=== PATIENT | female | born 1985 | race Caucasian/White ===

== ENCOUNTER 2022-03-15 08:51 | Emergency (ER) | payer BC, OTHER ==
[~2022-03-15] VITALS: Ht 165.1 cm; Wt 57.2 kg
--- NOTE | 2022-03-15 09:00 | NUR ---
POST ICTAL, S/P VERSED. TO ER BED 9.
[2022-03-15 09:17] LABS: BASOPHILS % (AUTO) 0.4 % (0.0-2.0); EOSINOPHILS % (AUTO) 0.9 % (0.0-6.0); HEMATOCRIT 37 % (33-45); HEMOGLOBIN 11.7 g/dL (11.5-14.8); LYMPHOCYTES % (AUTO) 32.8 % (20.0-44.0); MEAN CORPUSCULAR HGB CONC 32 g/dl (31.0-36.0); MEAN CORPUSCULAR VOLUME 101 fL (82-100); MONOCYTES # (AUTO) 0.5 K/uL (0.1-1.30); NEUTROPHILS # (AUTO) 3.5 K/uL (1.8-8.9); NEUTROPHILS % (AUTO) 57.9 % (43.0-81.0); PLATELET COUNT (AUTO) 185 K/uL (150-450); RED BLOOD CELL COUNT(AUTO) 3.66 MIL/uL (4.0-5.2); WHITE BLOOD COUNT (AUTO) 6.1 K/uL (4.3-11.0)
--- NOTE | 2022-03-15 09:20 | NUR ---
LFA #20 ACCESS REGISTRAR, BLOOD DRAWN AND COLLECTED BY PHELB AT BEDSIDE
--- NOTE | 2022-03-15 09:25 | NUR ---
PT TAKEN TO RADIOLOGY FOR CT
[2022-03-15] MEDS ORDERED: LEVETIRACETAM (500MG) 1,000 MG in IV NS 0.9% 100 ML IV SCH (09:30)
--- NOTE | 2022-03-15 09:34 | NUR ---
PT RETURNED FROM RADIOLOGY
[2022-03-15 09:35] LABS: ALBUMIN 3.4 g/dL (3.4-5.0); BILIRUBIN,DIRECT 1.1 mg/dL (0.0-0.2); BILIRUBIN,TOTAL 1.7 mg/dL (0.2-1.0); CALCIUM, SERUM 9.4 mg/dL (8.5-10.1); CREATININE 0.7 mg/dL (0.6-1.3); POTASSIUM 3.8 mmol/L (3.5-5.1); TOTAL PROTEIN, SERUM 9.2 g/dL (6.4-8.2)
--- NOTE | 2022-03-15 10:23 | NUR ---
PT UNABLE TO PROVIDE URINE AT THIS TIME AND REFUSED CATHETER. INFORMED FAMILY TO LET NURSE KNOW WHEN PT IS ABLE TO PROVIDE URINE, VERBALIZED UNDERSTANDING.
--- NOTE | 2022-03-15 10:37 | NUR ---
ACCUCHECK BS 132MG/DL
--- NOTE | 2022-03-15 11:03 | NUR ---
DR WONG SPEAKING W/ PT/FAMILY AT BEDSIDE
[2022-03-15] MEDS ORDERED: ACETAMINOPHEN ES 500 MG TABLET PO ONE (11:30)
[2022-03-15] MEDS ORDERED: ACETAMINOPHEN ES 500 MG TABLET ONE (11:33)
--- NOTE | 2022-03-15 11:50 | NUR ---
TYLENOL PO GIVEN INDICATED, HAYLEY WELL
--- NOTE | 2022-03-15 12:04 | NUR ---
DR WONG AWARE THAT PT UNABLE TO PROVIDE URINE AT THIS TIME AND PT/FAMILY REFUSED CATH
[2022-03-15] MEDS ORDERED: LEVE1000 PO (12:26)
[2022-03-15] MEDS ORDERED: CHLO25CA22 PO (12:26)
--- NOTE | 2022-03-15 12:40 | NUR ---
IV removed. Catheter intact and site benign. Pressure and 4x4 applied to site. No bleeding noted.
--- NOTE | 2022-03-15 12:44 | NUR ---
Patient discharged to home in stable condition. Written and verbal after care instructions given. Patient verbalizes understanding of instruction.
[2022-03-15 12:45] VITALS: BP 130/68
== END 2022-03-15 12:46 | disposition home or self-care (01) ==
LOC: ER 08:53
DX: G40.89 Other seizures (principal); F10.239 Alcohol dependence with withdrawal, unspecified; F10.229 Alcohol dependence with intoxication, unspecified; R73.9 Hyperglycemia, unspecified; K74.60 Unspecified cirrhosis of liver; Z88.8 Allergy status to other drugs, medicaments and biological substances; Y90.1 Blood alcohol level of 20-39 mg/100 ml
CPT/HCPCS: 99285; 96365; 51701; 70450; 82140; 85025; 80048; 80076; 36415; 80164; 82962; 80320; J7030; J1953; G0480

== ENCOUNTER 2022-05-21 05:45 | Emergency (ER) | payer BC, OTHER ==
[~2022-05-21] VITALS: Ht 170.2 cm; Wt 56.7 kg
[~2022-05-21 05:45] MED LIST: CHLO25CA22 PO; LEVE1000 PO
[2022-05-21] MEDS ORDERED: LORAZEPAM INJ 2 MG/ML VIAL ONE (05:51)
--- NOTE | 2022-05-21 05:56 | NUR ---
0551 - PT WAS BEING TRANSFER FROM [facility] TO BED. PT STARTED HAVING A SEIZURE. TONIC CLONIC LASTED 2 MIN. VERBAL ORDER OS ATIVAN 2MG IM GIVEN.
--- NOTE | 2022-05-21 06:08 | NUR ---
FLODY FROM HOME TO ER BED 4. AAOX4. NOT IN RESP DISTRESS. BROUGHT IN FOR SEIZURE WHICH WAS DESCRIBED TONIC CLONIC IN NATURE LASTING 5 MIN PER REPORT. PT HAVE HISTORY AND ON DEPAKOTE. PT WAS REPORTED TO BE A KNOWN DRINKER. PT STATES THAT LAST DRINK WAS YESTERDAY. PT NOTED WITH DISTENDED ABDOMEN. MD WAS AT THE BEDSIDE. ORDERS RECEIVED.
[2022-05-21] MEDS ORDERED: LORAZEPAM INJ 2 MG/ML VIAL IM ONE (06:30)
[2022-05-21 06:31] LABS: BASOPHILS % (AUTO) 0.8 % (0.0-2.0); EOSINOPHILS % (AUTO) 0.2 % (0.0-6.0); HEMATOCRIT 33 % (33-45); HEMOGLOBIN 11.1 g/dL (11.5-14.8); LYMPHOCYTES # (AUTO) 1.1 K/uL (0.8-4.8); LYMPHOCYTES % (AUTO) 26.8 % (20.0-44.0); MEAN CORPUSCULAR HGB CONC 33 g/dl (31.0-36.0); MEAN CORPUSCULAR VOLUME 107 fL (82-100); MONOCYTES # (AUTO) 0.7 K/uL (0.1-1.30); MONOCYTES % (AUTO) 16.5 % (2.0-12.0); NEUTROPHILS # (AUTO) 2.4 K/uL (1.8-8.9); NEUTROPHILS % (AUTO) 55.7 % (43.0-81.0); PLATELET COUNT (AUTO) 121 K/uL (150-450); RED BLOOD CELL COUNT(AUTO) 3.13 MIL/uL (4.0-5.2); WHITE BLOOD COUNT (AUTO) 4.3 K/uL (4.3-11.0)
[2022-05-21 06:39] LABS: ALANINE AMINOTRANSFERASE 29 U/L (12-78); ALBUMIN 2.8 g/dL (3.4-5.0); ALCOHOL, BLOOD < 3 mg/dL (0-0); ALKALINE PHOSPHATASE 400 U/L (46-116); ASPARTATE AMINOTRANSFERASE 154 U/L (15-37); BILIRUBIN,DIRECT 2.1 mg/dL (0.0-0.2); BILIRUBIN,TOTAL 3.1 mg/dL (0.2-1.0); CARBON DIOXIDE 24 mmol/L (21-32); CHLORIDE 96 mmol/L (98-107); CREATININE 0.6 mg/dL (0.6-1.3); GLUCOSE 169 mg/dL (74-106); POTASSIUM 3.8 mmol/L (3.5-5.1); SODIUM SERUM 133 mmol/L (136-145); TOTAL PROTEIN, SERUM 8.6 g/dL (6.4-8.2); UREA NITROGEN, BLOOD 4 mg/dL (7-18)
[2022-05-21] MEDS ORDERED: IV NS 0.9% 1,000 ML BAG IV ONE (07:00)
--- NOTE | 2022-05-21 07:15 | NUR ---
Pt care continue as report is given to the AM receiving nurse.
--- NOTE | 2022-05-21 07:23 | NUR ---
B/P = 132 /86 , PULSE - 121, RR = 19, 97 % ROOM AIR, FRIEND FOR SUPPORT AT BED SIDE AT THIS TIME. DIM LIGHTS & BROUGHT WARM BLANKET FOR COMFORT
[2022-05-21 07:29] LABS: LYMPHOCYTES % (MANUAL) 28 % (16-48); MONOCYTES % (MANUAL) 14 % (0-11.0); NEUTROPHILS % (MANUAL) 58 (42-76)
[2022-05-21] MEDS ORDERED: LEVETIRACETAM (500MG) 500 MG/5 ML VIAL IV ONE (07:42)
[2022-05-21] MEDS ORDERED: THIAMINE HCL 100 MG TABLET PO ONE (08:00)
[2022-05-21] MEDS ORDERED: FOLIC ACID 1 MG TABLET PO ONE (08:00)
[2022-05-21] MEDS: LEVETIRACETAM (500MG) 1,000 MG in IV NS 0.9% 100 ML IV SCH ×6 (08:06→10:51)
[2022-05-21] MEDS ORDERED: THIAMINE HCL 100 MG TABLET ONE (08:08)
[2022-05-21] MEDS ORDERED: LORAZEPAM 1 MG TABLET ONE (08:17)
[2022-05-21] MEDS ORDERED: LORAZEPAM 1 MG TABLET PO ONE (08:30)
--- NOTE | 2022-05-21 08:39 | NUR ---
KEPPRA ORDER 500MG/ 5 ML IV WAS GIVEN ONE TIME PER MD ORDER, THE REASON FOR MULTIPLE CHARTING IS IT WAS SHOWING UNSAVED ON COMPUTER DUE TO NEEDING AN IV SITE CHARTED. IV SITE WAS CHARTED AND MEDICATION GIVEN IV ONE TIME PER ORDER AT THIS TIME.
[2022-05-21] MEDS ORDERED: LORAZEPAM INJ 2 MG/ML VIAL IV ONE (09:30)
[2022-05-21] MEDS ORDERED: ONDANSETRON HCL/PF - ER 4 MG/2 ML VIAL IV ONE (09:30)
[2022-05-21] MEDS ORDERED: ONDANSETRON HCL/PF 4 MG/2 ML VIAL ONE (09:38)
--- NOTE | 2022-05-21 10:11 | NUR ---
CONTACTED DR. TAPIA, PRIMARY MD, OF PT TO SPEAK TO DR. LAKHANI [phone]
--- NOTE | 2022-05-21 10:56 | NUR ---
CALLED [facility] AND SET UP BLS TRANSPORT ETA 1132
--- NOTE | 2022-05-21 12:01 | NUR ---
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
[2022-05-21 12:03] VITALS: BP 135/86
--- NOTE | 2022-05-21 12:04 | NUR ---
STOP IV at 11:35 AM no infiltration no s/s of infection noted skin intact
== END 2022-05-21 11:55 | disposition home or self-care (01) ==
LOC: ER 05:46
DX: R56.9 Unspecified convulsions (principal); F10.139 Alcohol abuse with withdrawal, unspecified; K74.60 Unspecified cirrhosis of liver; Z88.8 Allergy status to other drugs, medicaments and biological substances; Z79.899 Other long term (current) drug therapy; Y90.0 Blood alcohol level of less than 20 mg/100 ml
CPT/HCPCS: 99285; 96372; 96374; 96375; 93005; 71045; 73610; 85025; 80048; 80076; 85007; 36415; 85730; 82962; 80320; J2060; J2405; J7030; A4223; G0480; J1953

== ENCOUNTER 2022-07-07 09:25 | Emergency (ER) | payer BC ==
[~2022-07-07] VITALS: Ht 172.7 cm; Wt 62.6 kg
[2022-07-07] MEDS ORDERED: LEVETIRACETAM (500MG) 1,000 MG in IV NS 0.9% 100 ML IV SCH (09:30)
[2022-07-07] MEDS ORDERED: IV NS 0.9% 1,000 ML IV ONE ×2 (09:30→14:00)
--- NOTE | 2022-07-07 09:30 | NUR ---
RECEIVED PT 36 YRS FEMALE DROP OFF BY FAMILY FOR CHECKING AWAKE C/O NUASEA AND VOMITIND
--- NOTE | 2022-07-07 09:35 | NUR ---
SEEN BY DR. NAVA
--- NOTE | 2022-07-07 09:40 | NUR ---
INSERTED ANGOCATHETER G 18 ON RT AC BLOOD DROW AND SENT TO LAB IVF INFUSED AND PATENT
[2022-07-07 09:51] LABS: BASOPHILS % (AUTO) 0.9 % (0.0-2.0); EOSINOPHILS % (AUTO) 0.2 % (0.0-6.0); HEMATOCRIT 38 % (33-45); HEMOGLOBIN 12.3 g/dL (11.5-14.8); LYMPHOCYTES % (AUTO) 39.8 % (20.0-44.0); MEAN CORPUSCULAR HGB CONC 32 g/dl (31.0-36.0); MEAN CORPUSCULAR VOLUME 102 fL (82-100); MONOCYTES # (AUTO) 0.6 K/uL (0.1-1.30); MONOCYTES % (AUTO) 10.9 % (2.0-12.0); NEUTROPHILS # (AUTO) 2.5 K/uL (1.8-8.9); NEUTROPHILS % (AUTO) 48.2 % (43.0-81.0); PLATELET COUNT (AUTO) 119 K/uL (150-450); RED BLOOD CELL COUNT(AUTO) 3.77 MIL/uL (4.0-5.2); WHITE BLOOD COUNT (AUTO) 5.1 K/uL (4.3-11.0)
[2022-07-07 10:03] LABS: CALCIUM, SERUM 8.6 mg/dL (8.5-10.1); CREATININE 0.6 mg/dL (0.6-1.3); POTASSIUM 3.7 mmol/L (3.5-5.1)
[2022-07-07 10:08] LABS: BILIRUBIN,DIRECT 2.7 mg/dL (0.0-0.2); BILIRUBIN,TOTAL 3.9 mg/dL (0.2-1.0); TOTAL PROTEIN, SERUM 8.9 g/dL (6.4-8.2)
--- NOTE | 2022-07-07 10:21 | NUR ---
ANKUSH 1000MG IVPB INFUSED AND PATENT
--- NOTE | 2022-07-07 11:00 | NUR ---
KEEPRA 1000 MG IVPB INFUSED AND PATENT COMPLETED
[2022-07-07] MEDS ORDERED: ONDANSETRON HCL/PF 4 MG/2 ML VIAL ONE (11:03)
[2022-07-07] MEDS ORDERED: ONDANSETRON HCL/PF - ER 4 MG/2 ML VIAL IV ONE (11:30)
--- NOTE | 2022-07-07 12:00 | NUR ---
NS 2 ND LITER NS 0.9 1L INFUSED AND PATENT INFUSED OVER ON HR
--- NOTE | 2022-07-07 12:29 | NUR ---
PT INCONTENT OF STOOL
--- NOTE | 2022-07-07 13:20 | NUR ---
UA SENT TO LAB
[2022-07-07] MEDS ORDERED: LORAZEPAM INJ 2 MG/ML VIAL IV ONE ×2 (14:00→16:30)
[2022-07-07] MEDS ORDERED: LEVE500T20 PO (14:03)
[2022-07-07] MEDS ORDERED: [UNRECOGNIZED DRUG - REMARK] (14:21)
--- NOTE | 2022-07-07 14:27 | NUR ---
CALLED DR. TAPIA, PCP [phone] [employer]EE [employer].
--- NOTE | 2022-07-07 14:36 | NUR ---
COVID SWAB SENT TO LAB
--- NOTE | 2022-07-07 15:00 | NUR ---
PT AND FAMILY REFUSED TO BE ADMITED INPT AND REQUSTED TO TRANSFER TO [facility]
--- NOTE | 2022-07-07 17:05 | NUR ---
IV removed. Catheter intact and site benign. Pressure and 4x4 applied to site. No bleeding noted.
--- NOTE | 2022-07-07 17:11 | NUR ---
Patient does not wish to proceed with medical care recommended by Dr. Sage MACHADOO . Patient given information related to possible complications, up to and including , which could occur as a result of leaving the hospital at this time. Patient verbalizes understanding of risks involved due to leaving against medical advice. Patient has signed AMA form.
[2022-07-07 17:54] VITALS: BP 104/59
== END 2022-07-07 17:40 | disposition left against medical advice (07) ==
LOC: ER 09:32
DX: R56.9 Unspecified convulsions (principal); F10.239 Alcohol dependence with withdrawal, unspecified; Z79.899 Other long term (current) drug therapy; Z20.822 Contact with and (suspected) exposure to COVID-19; Z91.040 Latex allergy status; Y90.8 Blood alcohol level of 240 mg/100 ml or more
CPT/HCPCS: 99285; 96365; 96361; 96375; 93005; 96376; 76705; 85025; 80048; 80076; 36415; 80177; 87426; 80320; 80307; J2405 ×2; J7030 ×3; J1953; C9803; G0480

== ENCOUNTER 2022-12-02 07:53 | Inpatient (IN) | payer BC ==
[~2022-12-02] VITALS: Ht 172.7 cm; Wt 62.6 kg
[~2022-12-02 07:53] MED LIST changes: -CHLO25CA22 PO; -LEVE1000 PO; +LEVE500T20 PO; +[UNRECOGNIZED DRUG - REMARK]
[2022-12-02] MEDS ORDERED: LEVETIRACETAM (500MG) 1,000 MG in IV NS 0.9% 90 ML IV STA (08:03)
[2022-12-02 08:38] LABS: BASOPHILS % (AUTO) 0.6 % (0.0-2.0); EOSINOPHILS # (AUTO) 0.1 K/uL (0.0-0.7); EOSINOPHILS % (AUTO) 1.3 % (0.0-6.0); HEMATOCRIT 37 % (33-45); HEMOGLOBIN 12.2 g/dL (11.5-14.8); LYMPHOCYTES # (AUTO) 1.4 K/uL (0.8-4.8); LYMPHOCYTES % (AUTO) 28.3 % (20.0-44.0); MEAN CORPUSCULAR HEMOGLOBIN 33 PG (26.0-33.0); MEAN CORPUSCULAR HGB CONC 33 g/dl (31.0-36.0); MEAN CORPUSCULAR VOLUME 101 fL (82-100); MONOCYTES # (AUTO) 0.5 K/uL (0.1-1.30); MONOCYTES % (AUTO) 10.5 % (2.0-12.0); NEUTROPHILS # (AUTO) 2.9 K/uL (1.8-8.9); NEUTROPHILS % (AUTO) 59.3 % (43.0-81.0); PLATELET COUNT (AUTO) 117 K/uL (150-450); RED BLOOD CELL COUNT(AUTO) 3.64 MIL/uL (4.0-5.2); RED CELL DISTRIBUTION WIDTH 14.9 % (11.5-15.0); WHITE BLOOD COUNT (AUTO) 4.8 K/uL (4.3-11.0)
[2022-12-02 08:52] LABS: INR 1.46 (0.91-1.10); PARTIAL THROMBOPLASTIN TIME 31.1 SEC (24.3-34.3); PROTHROMBIN TIME 15.1 SECS (9.2-11.1)
[2022-12-02 09:01] LABS: AMPHETAMINE, URINE NEGATIVE (NEGATIVE); BARBITURATE, URINE NEGATIVE (NEGATIVE); CANNABINOID, URINE NEGATIVE (NEGATIVE); COCCAINE, URINE NEGATIVE (NEGATIVE); OPIATE, URINE NEGATIVE (NEGATIVE); PHENCYCLIDINE SCREEN,URINE NEGATIVE (NEGATIVE)
[2022-12-02 09:01] LABS: ALANINE AMINOTRANSFERASE 34 U/L (12-78); ALBUMIN 3.1 g/dL (3.4-5.0); ALKALINE PHOSPHATASE 240 U/L (46-116); ASPARTATE AMINOTRANSFERASE 43 U/L (15-37); BILIRUBIN,DIRECT 1.3 mg/dL (0.0-0.2); BILIRUBIN,TOTAL 2.4 mg/dL (0.2-1.0); CALCIUM, SERUM 9.3 mg/dL (8.5-10.1); CARBON DIOXIDE 23 mmol/L (21-32); CHLORIDE 103 mmol/L (98-107); CREATININE 0.7 mg/dL (0.6-1.3); GLUCOSE 223 mg/dL (74-106); POTASSIUM 4.1 mmol/L (3.5-5.1); SODIUM SERUM 136 mmol/L (136-145); TOTAL PROTEIN, SERUM 7.9 g/dL (6.4-8.2); UREA NITROGEN, BLOOD 10 mg/dL (7-18)
[2022-12-02 09:06] LABS: ALCOHOL, BLOOD < 3 mg/dL (0-10)
[2022-12-02 09:09] LABS: BENZODIAZEPINE, URINE POSITIVE (NEGATIVE)
[2022-12-02 09:09] LABS: THYROID STIMULATING HORMONE 6.951 uIU/mL (0.358-3.74)
[2022-12-02] MEDS ORDERED: LACT10SO3 PO (09:56)
[2022-12-02] MEDS ORDERED: THIA100T70 PO (09:56)
[2022-12-02] MEDS ORDERED: PROP20TA19 PO (09:56)
[2022-12-02] MEDS ORDERED: INSU100I4 SQ (09:56)
[2022-12-02] MEDS ORDERED: RIFA550T PO (09:56)
[2022-12-02] MEDS ORDERED: PANT40TA2 PO (09:56)
[2022-12-02] MEDS ORDERED: SERT100T12 PO (09:56)
[2022-12-02] MEDS ORDERED: INSU100I26 SQ (09:56)
[2022-12-02] MEDS ORDERED: TRAZ-257 PO (09:56)
[2022-12-02] MEDS ORDERED: FURO-145 PO (09:56)
[2022-12-02] MEDS ORDERED: SPIR50TA PO (09:56)
[2022-12-02 11:04] LABS: PREGNANCY TEST URINE QUAL NEGATIVE (NEGATIVE)
[2022-12-02] MEDS ORDERED: IV NS 0.9% 1,000 ML BAG IV ONE (11:30)
[2022-12-02] MEDS ORDERED: MAG HYDROX/AL HYDROX/SIMETH 30 ML UDC PO PRN (12:00)
[2022-12-02] MEDS ORDERED: DEXTROSE 50%-WATER 50 ML DISP.SYRIN IV PRN (12:00)
[2022-12-02] MEDS ORDERED: MAGNESIUM HYDROXIDE 30 ML UDC PO PRN (12:00)
[2022-12-02] MEDS ORDERED: Z GUARD REMEDY 4 OZ OINT TP PRN (12:00)
[2022-12-02] MEDS ORDERED: PROPRANOLOL HCL 10 MG TABLET PO PRN (12:30)
[2022-12-02] MEDS ORDERED: TRAMADOL HCL 50 MG TABLET PO PRN (13:00)
[2022-12-02] MEDS: ACETAMINOPHEN 325 MG TABLET PO PRN ×2 (14:28→20:28)
[2022-12-02] MEDS: INSULIN REGULAR, HUMAN 100 UNIT/ML 3 ML VIAL SQ PRN (14:49)
[2022-12-02] MEDS: BLOOD SUGAR DIAGNOSTIC 1 EACH STRIP IN SCH ×3 (14:51→22:58)
[2022-12-02] MEDS: ONDANSETRON HCL/PF 4 MG/2 ML VIAL IVP PRN ×2 (15:11→21:39)
[2022-12-02] MEDS: LACTULOSE 10 G/15 ML UDC (PYXIS) PO PRN ×2 (15:41→15:52)
[2022-12-02] MEDS: IV NS 0.9% 1,000 ML IV PRN (15:59)
[2022-12-02] MEDS ORDERED: LORAZEPAM INJ 2 MG/ML VIAL IV PRN (16:00)
[2022-12-02 16:24] VITALS: BP 100/53; TEMP 98; O2SAT 97
[2022-12-02] MEDS: RIFAXIMIN 550 MG TABLET PO SCH (17:04)
[2022-12-02] MEDS: LEVETIRACETAM (500MG) 1,000 MG in IV NS 0.9% 90 ML IV SCH (19:50)
[2022-12-02 20:00] VITALS: BP 110/59; TEMP 98.6; O2SAT 97
[2022-12-02] MEDS ORDERED: ZOLPIDEM TARTRATE 5 MG TABLET PO PRN (22:00)
[2022-12-02] MEDS: TRAZODONE 50 MG TABLET PO PRN (22:40)
[2022-12-02] MEDS: LIDOCAINE 5% (PATCH) 1 EA PATCH TP SCH (22:40)
[2022-12-02] MEDS: INSULIN GLARGINE, 100 UNIT/ML CARTRIDGE SQ SCH (22:59)
[2022-12-03] VITALS (7 sets, daily range): BP systolic 81–103; BP diastolic 47–64; TEMP 97.8–98.2; O2SAT 94–99
[2022-12-03] MEDS: IV NS 0.9% 1,000 ML IV PRN ×2 (04:37→16:29)
[2022-12-03] MEDS: ACETAMINOPHEN 325 MG TABLET PO PRN ×3 (04:42→19:57)
[2022-12-03 05:49] LABS: BASOPHILS % (AUTO) 0.6 % (0.0-2.0); EOSINOPHILS # (AUTO) 0.1 K/uL (0.0-0.7); HEMATOCRIT 35 % (33-45); HEMOGLOBIN 11.7 g/dL (11.5-14.8); LYMPHOCYTES # (AUTO) 1.7 K/uL (0.8-4.8); LYMPHOCYTES % (AUTO) 29.6 % (20.0-44.0); MEAN CORPUSCULAR HEMOGLOBIN 33 PG (26.0-33.0); MEAN CORPUSCULAR HGB CONC 33 g/dl (31.0-36.0); MEAN CORPUSCULAR VOLUME 100 fL (82-100); MONOCYTES # (AUTO) 0.5 K/uL (0.1-1.30); MONOCYTES % (AUTO) 8.4 % (2.0-12.0); NEUTROPHILS # (AUTO) 3.5 K/uL (1.8-8.9); NEUTROPHILS % (AUTO) 60.4 % (43.0-81.0); PLATELET COUNT (AUTO) 118 K/uL (150-450); RED BLOOD CELL COUNT(AUTO) 3.49 MIL/uL (4.0-5.2); RED CELL DISTRIBUTION WIDTH 15.3 % (11.5-15.0); WHITE BLOOD COUNT (AUTO) 5.7 K/uL (4.3-11.0)
[2022-12-03 06:09] LABS: ALBUMIN 2.8 g/dL (3.4-5.0); BILIRUBIN,TOTAL 2.8 mg/dL (0.2-1.0); CALCIUM, SERUM 8.9 mg/dL (8.5-10.1); CREATININE 0.7 mg/dL (0.6-1.3); MAGNESIUM 1.5 mg/dL (1.8-2.4); PHOSPHORUS 4.5 mg/dL (2.5-4.9); POTASSIUM 3.6 mmol/L (3.5-5.1); TOTAL PROTEIN, SERUM 7.2 g/dL (6.4-8.2)
[2022-12-03] MEDS: BLOOD SUGAR DIAGNOSTIC 1 EACH STRIP IN SCH ×4 (07:37→21:21)
[2022-12-03] MEDS: INSULIN REGULAR, HUMAN 100 UNIT/ML 3 ML VIAL SQ PRN ×4 (07:38→21:26)
[2022-12-03] MEDS: THIAMINE HCL 100 MG TABLET PO SCH (08:09)
[2022-12-03] MEDS: RIFAXIMIN 550 MG TABLET PO SCH ×2 (08:09→16:31)
[2022-12-03] MEDS: SERTRALINE HCL 50 MG TABLET PO SCH (08:09)
[2022-12-03] MEDS: SPIRONOLACTONE 25 MG TABLET PO SCH (08:09)
[2022-12-03] MEDS: PANTOPRAZOLE 40 MG TABLET.DR PO SCH (08:10)
[2022-12-03] MEDS: LEVETIRACETAM (500MG) 1,000 MG in IV NS 0.9% 90 ML IV SCH ×2 (08:16→18:41)
[2022-12-03] MEDS ORDERED: MAGNESIUM OXIDE 400 MG TABLET PO ONE (10:00)
[2022-12-03] MEDS: TRAZODONE 50 MG TABLET PO PRN (21:15)
[2022-12-03] MEDS: INSULIN GLARGINE, 100 UNIT/ML CARTRIDGE SQ SCH (21:23)
[2022-12-03] MEDS: LIDOCAINE 5% (PATCH) 1 EA PATCH TP SCH (21:27)
[2022-12-04] VITALS: BP 87/49; TEMP 98.1; O2SAT 97
[2022-12-04 03:56] VITALS: BP 93/53; TEMP 97.7; O2SAT 96
[2022-12-04] MEDS: PANTOPRAZOLE 40 MG TABLET.DR PO SCH (06:58)
[2022-12-04] MEDS: ACETAMINOPHEN 325 MG TABLET PO PRN (06:58)
[2022-12-04] MEDS: BLOOD SUGAR DIAGNOSTIC 1 EACH STRIP IN SCH (07:03)
[2022-12-04] MEDS: INSULIN REGULAR, HUMAN 100 UNIT/ML 3 ML VIAL SQ PRN (07:11)
[2022-12-04] MEDS: IV NS 0.9% 1,000 ML IV PRN (07:51)
[2022-12-04 08:00] VITALS: BP 103/69; TEMP 98.4; O2SAT 100
[2022-12-04] MEDS ORDERED: LEVETIRACETAM (500MG) 1,000 MG in IV NS 0.9% 90 ML IV SCH (09:00)
[2022-12-04] MEDS: SPIRONOLACTONE 25 MG TABLET PO SCH (09:05)
[2022-12-04] MEDS: SERTRALINE HCL 50 MG TABLET PO SCH (09:05)
[2022-12-04] MEDS: RIFAXIMIN 550 MG TABLET PO SCH (09:05)
[2022-12-04] MEDS: THIAMINE HCL 100 MG TABLET PO SCH (09:06)
[2022-12-04] MEDS ORDERED: LEVE500T9 PO ×2 (09:42→10:57)
[2022-12-04] MEDS ORDERED: LIDO30AD10 TP ×2 (09:42→10:57)
== END 2022-12-04 10:50 | disposition home or self-care (01) | DRG 100 ==
LOC: ER 08:10 → TELE 12:27
PROVIDERS: ADMIT Nurse Practitioner Acute Care; ATTEND Nurse Practitioner Acute Care
DX: G40.901 Epilepsy, unspecified, not intractable, with status epilepticus (principal); G92.8 Other toxic encephalopathy; E44.1 Mild protein-calorie malnutrition; F33.2 Major depressive disorder, recurrent severe without psychotic features; K70.30 Alcoholic cirrhosis of liver without ascites; K72.10 Chronic hepatic failure without coma; F10.10 Alcohol abuse, uncomplicated; Y90.0 Blood alcohol level of less than 20 mg/100 ml; K76.82 Hepatic encephalopathy; Z79.4 Long term (current) use of insulin; E11.9 Type 2 diabetes mellitus without complications; Z79.899 Other long term (current) drug therapy; Z91.040 Latex allergy status; F17.210 Nicotine dependence, cigarettes, uncomplicated; F15.90 Other stimulant use, unspecified, uncomplicated; E03.8 Other specified hypothyroidism; R74.01 Elevation of levels of liver transaminase levels; E88.09 Other disorders of plasma-protein metabolism, not elsewhere classified; Z87.820 Personal history of traumatic brain injury
CPT/HCPCS: 36415; 70450-TC; 71045-TC; 76705-TC; 80048-TC; 80053-TC; 80076-TC; 82140-TC; 82962-TC; 83735-TC; 84100-TC; 84443-TC; 84703-TC; 85025-TC; 85730-TC; 95819-TC; A4223; G0378; G0480; J1815; J1953; J2405; J7030

== ENCOUNTER 2022-12-20 10:08 | Inpatient (IN) | payer BC ==
[~2022-12-20] VITALS: Ht 174 cm; Wt 63.0 kg
[~2022-12-20 10:08] MED LIST changes: +FURO-145 PO; +INSU100I26 SQ; +INSU100I4 SQ; +LACT10SO3 PO; -LEVE500T20 PO; +LEVE500T9 PO; +LIDO30AD10 TP; +PANT40TA2 PO; +PROP20TA19 PO; +RIFA550T PO; +SERT100T12 PO; +SPIR50TA PO; +THIA100T70 PO; +TRAZ-257 PO; -[UNRECOGNIZED DRUG - REMARK]
[2022-12-20] MEDS ORDERED: IV NS 0.9% 500 ML BAG IV ONE (10:30)
[2022-12-20 11:01] LABS: BASOPHILS % (AUTO) 0.6 % (0.0-2.0); EOSINOPHILS # (AUTO) 0.1 K/uL (0.0-0.7); EOSINOPHILS % (AUTO) 1.5 % (0.0-6.0); HEMATOCRIT 36 % (33-45); HEMOGLOBIN 11.9 g/dL (11.5-14.8); LYMPHOCYTES # (AUTO) 0.7 K/uL (0.8-4.8); LYMPHOCYTES % (AUTO) 17.8 % (20.0-44.0); MEAN CORPUSCULAR HEMOGLOBIN 33 PG (26.0-33.0); MEAN CORPUSCULAR HGB CONC 33 g/dl (31.0-36.0); MEAN CORPUSCULAR VOLUME 99 fL (82-100); MONOCYTES # (AUTO) 0.3 K/uL (0.1-1.30); MONOCYTES % (AUTO) 7.9 % (2.0-12.0); NEUTROPHILS # (AUTO) 2.9 K/uL (1.8-8.9); NEUTROPHILS % (AUTO) 72.2 % (43.0-81.0); PLATELET COUNT (AUTO) 93 K/uL (150-450); RED BLOOD CELL COUNT(AUTO) 3.65 MIL/uL (4.0-5.2); RED CELL DISTRIBUTION WIDTH 15.2 % (11.5-15.0)
[2022-12-20 11:20] LABS: ALANINE AMINOTRANSFERASE 40 U/L (12-78); ALBUMIN 3.1 g/dL (3.4-5.0); ALKALINE PHOSPHATASE 216 U/L (46-116); ASPARTATE AMINOTRANSFERASE 52 U/L (15-37); BILIRUBIN,DIRECT 1.2 mg/dL (0.0-0.2); BILIRUBIN,TOTAL 2.3 mg/dL (0.2-1.0); CALCIUM, SERUM 9.3 mg/dL (8.5-10.1); CARBON DIOXIDE 26 mmol/L (21-32); CHLORIDE 103 mmol/L (98-107); CREATININE 0.7 mg/dL (0.6-1.3); GLUCOSE 179 mg/dL (74-106); POTASSIUM 4.2 mmol/L (3.5-5.1); SODIUM SERUM 137 mmol/L (136-145); TOTAL PROTEIN, SERUM 7.6 g/dL (6.4-8.2); UREA NITROGEN, BLOOD 7 mg/dL (7-18)
[2022-12-20 11:22] LABS: ALCOHOL, BLOOD < 3 mg/dL (0-10)
[2022-12-20 11:56] LABS: LACTIC ACID 2.8 mmol/L (0.4-2.0)
[2022-12-20 12:25] LABS: ANISOCYTOSIS 1+; LYMPHOCYTES % (MANUAL) 11 % (16-48); MONOCYTES % (MANUAL) 7 % (0-11.0); NEUTROPHILS % (MANUAL) 82 (42-76); PLATELET ESTIMATE DECREASED
[2022-12-20] MEDS ORDERED: LORAZEPAM INJ 2 MG/ML VIAL ONE (12:26)
[2022-12-20] MEDS ORDERED: LIDO30AD10 TP (12:53)
[2022-12-20] MEDS ORDERED: LEVE500T9 PO (12:53)
[2022-12-20] MEDS ORDERED: LORAZEPAM INJ 2 MG/ML VIAL IV ONE (13:00)
[2022-12-20] MEDS ORDERED: LEVETIRACETAM (500MG) 1,500 MG in IV NS 0.9% 85 ML IV SCH (13:00)
[2022-12-20 15:31] LABS: APPEARANCE,URINE CLEAR (CLEAR); BILIRUBIN,URINE NEGATIVE (NEGATIVE); BLOOD, URINE NEGATIVE Ery/uL (NEGATIVE); COLOR,URINE YELLOW (YELLOW); KETONES,URINE NEGATIVE (NEGATIVE); LEUKOCYTE ESTERASE ,URINE TRACE (NEGATIVE); NITRITE, URINE NEGATIVE (NEGATIVE); PH,URINE 6.5 (5.0-8.0); PROTEIN,URINE NEGATIVE (NEGATIVE); UGLUCOSE NEGATIVE (NEGATIVE); UROBILINOGEN,URINE 0.2 EU/dL (0.2)
[2022-12-20 15:35] LABS: ADD URINE CULTURE NO; BACTERIA,URINE None seen /HPF (None Seen); RBC,URINE 0-2 /HPF (0-2); URINE AMORPHOUS URATE Few /HPF (None Seen); WBC,URINE 0-2 /HPF (0-3)
[2022-12-20 15:36] LABS: PREGNANCY TEST URINE QUAL NEGATIVE (NEGATIVE)
[2022-12-20 15:52] LABS: AMPHETAMINE, URINE NEGATIVE (NEGATIVE); BARBITURATE, URINE NEGATIVE (NEGATIVE); CANNABINOID, URINE NEGATIVE (NEGATIVE); COCCAINE, URINE NEGATIVE (NEGATIVE); OPIATE, URINE NEGATIVE (NEGATIVE); PHENCYCLIDINE SCREEN,URINE NEGATIVE (NEGATIVE)
[2022-12-20 15:55] LABS: BENZODIAZEPINE, URINE POSITIVE (NEGATIVE)
[2022-12-20 16:00] VITALS: BP 99/50; TEMP 98.8; O2SAT 96
[2022-12-20 18:00] VITALS: BP 101/57; TEMP 99.3; O2SAT 99
[2022-12-20 20:00] VITALS: BP 103/62; TEMP 100; O2SAT 95
[2022-12-20] MEDS ORDERED: ONDANSETRON HCL/PF 4 MG/2 ML VIAL IVP PRN (21:00)
[2022-12-20] MEDS ORDERED: Z GUARD REMEDY 4 OZ OINT TP PRN (21:00)
[2022-12-20] MEDS ORDERED: LACTULOSE 10 G/15 ML UDC (PYXIS) PO PRN (21:00)
[2022-12-20] MEDS: LEVETIRACETAM (250 MG) 250 MG TABLET PO SCH (21:55)
[2022-12-20] MEDS: PROPRANOLOL HCL 10 MG TABLET PO SCH (21:57)
[2022-12-20] MEDS: INSULIN GLARGINE, 100 UNIT/ML CARTRIDGE SQ SCH (22:00)
[2022-12-20] MEDS: ACETAMINOPHEN 325 MG TABLET PO PRN (22:00)
[2022-12-21] VITALS: BP 100/49; TEMP 99; O2SAT 96
[2022-12-21 04:00] VITALS: BP 102/61; TEMP 98.2; O2SAT 97
[2022-12-21 07:00] VITALS: BP 103/60; TEMP 98.2; O2SAT 96
[2022-12-21 07:05] LABS: BASOPHILS % (AUTO) 0.5 % (0.0-2.0); EOSINOPHILS # (AUTO) 0.1 K/uL (0.0-0.7); EOSINOPHILS % (AUTO) 0.9 % (0.0-6.0); HEMATOCRIT 35 % (33-45); LYMPHOCYTES # (AUTO) 1.6 K/uL (0.8-4.8); LYMPHOCYTES % (AUTO) 23.6 % (20.0-44.0); MEAN CORPUSCULAR HEMOGLOBIN 34 PG (26.0-33.0); MEAN CORPUSCULAR HGB CONC 34 g/dl (31.0-36.0); MEAN CORPUSCULAR VOLUME 98 fL (82-100); MONOCYTES # (AUTO) 0.7 K/uL (0.1-1.30); MONOCYTES % (AUTO) 10.4 % (2.0-12.0); NEUTROPHILS # (AUTO) 4.3 K/uL (1.8-8.9); NEUTROPHILS % (AUTO) 64.6 % (43.0-81.0); PLATELET COUNT (AUTO) 106 K/uL (150-450); RED BLOOD CELL COUNT(AUTO) 3.58 MIL/uL (4.0-5.2); RED CELL DISTRIBUTION WIDTH 15.1 % (11.5-15.0); WHITE BLOOD COUNT (AUTO) 6.6 K/uL (4.3-11.0)
[2022-12-21 07:36] LABS: CREATININE 0.6 mg/dL (0.6-1.3); MAGNESIUM 1.4 mg/dL (1.8-2.4); PHOSPHORUS 4.2 mg/dL (2.5-4.9); POTASSIUM 3.5 mmol/L (3.5-5.1)
[2022-12-21] MEDS: PANTOPRAZOLE 40 MG TABLET.DR PO SCH (08:07)
[2022-12-21] MEDS: FUROSEMIDE 20 MG TABLET PO SCH (08:58)
[2022-12-21] MEDS: SPIRONOLACTONE 25 MG TABLET PO SCH (08:59)
[2022-12-21] MEDS: THIAMINE HCL 100 MG TABLET PO SCH (08:59)
[2022-12-21] MEDS: LEVETIRACETAM (250 MG) 250 MG TABLET PO SCH ×2 (08:59→20:53)
[2022-12-21] MEDS: RIFAXIMIN 550 MG TABLET PO SCH ×2 (08:59→17:20)
[2022-12-21] MEDS: PROPRANOLOL HCL 10 MG TABLET PO SCH ×2 (09:00→20:57)
[2022-12-21] MEDS: SERTRALINE HCL 50 MG TABLET PO SCH (09:00)
[2022-12-21] MEDS: ACETAMINOPHEN 325 MG TABLET PO PRN (09:40)
[2022-12-21] MEDS ORDERED: MAGNESIUM OXIDE 400 MG TABLET PO ONE (10:00)
[2022-12-21 16:00] VITALS: BP 107/56; TEMP 99.4; O2SAT 94
[2022-12-21 20:00] VITALS: BP 100/62; TEMP 98.2; O2SAT 96
[2022-12-21] MEDS ORDERED: LORAZEPAM 1 MG TABLET PO PRN (20:00)
[2022-12-21] MEDS: BLOOD SUGAR DIAGNOSTIC 1 EACH STRIP IN SCH (21:28)
[2022-12-21] MEDS: INSULIN GLARGINE, 100 UNIT/ML CARTRIDGE SQ SCH (21:37)
[2022-12-22] VITALS: BP 90/49; TEMP 98; O2SAT 97
[2022-12-22] MEDS: BLOOD SUGAR DIAGNOSTIC 1 EACH STRIP IN SCH (07:30)
[2022-12-22 08:00] VITALS: BP 105/56; TEMP 98.6; O2SAT 98
[2022-12-22] MEDS: LEVETIRACETAM (250 MG) 250 MG TABLET PO SCH (08:41)
[2022-12-22] MEDS: PANTOPRAZOLE 40 MG TABLET.DR PO SCH (08:41)
[2022-12-22] MEDS: FUROSEMIDE 20 MG TABLET PO SCH (08:43)
[2022-12-22] MEDS: THIAMINE HCL 100 MG TABLET PO SCH (08:43)
[2022-12-22] MEDS: RIFAXIMIN 550 MG TABLET PO SCH (08:43)
[2022-12-22] MEDS: SERTRALINE HCL 50 MG TABLET PO SCH (08:43)
[2022-12-22] MEDS: SPIRONOLACTONE 25 MG TABLET PO SCH (08:44)
[2022-12-22] MEDS: PROPRANOLOL HCL 10 MG TABLET PO SCH (08:48)
[2022-12-22] MEDS ORDERED: MAGNESIUM OXIDE 400 MG TABLET PO ONE (10:00)
[2022-12-22] MEDS ORDERED: LEVE1000 PO (11:07)
== END 2022-12-22 11:45 | disposition home or self-care (01) | DRG 101 ==
LOC: ER 10:24 → TELE 13:27
PROVIDERS: ADMIT Nurse Practitioner Acute Care; ATTEND Nurse Practitioner Acute Care
DX: G40.909 Epilepsy, unspecified, not intractable, without status epilepticus (principal); E87.20 Acidosis, unspecified; K70.30 Alcoholic cirrhosis of liver without ascites; Y90.0 Blood alcohol level of less than 20 mg/100 ml; F10.10 Alcohol abuse, uncomplicated; Z20.822 Contact with and (suspected) exposure to COVID-19; Z87.820 Personal history of traumatic brain injury; Z79.899 Other long term (current) drug therapy; E11.65 Type 2 diabetes mellitus with hyperglycemia; Z87.898 Personal history of other specified conditions; Z79.4 Long term (current) use of insulin; D72.819 Decreased white blood cell count, unspecified; F17.200 Nicotine dependence, unspecified, uncomplicated; R32 Unspecified urinary incontinence; K72.90 Hepatic failure, unspecified without coma; Z88.8 Allergy status to other drugs, medicaments and biological substances; Z91.040 Latex allergy status; E80.6 Other disorders of bilirubin metabolism; R74.01 Elevation of levels of liver transaminase levels
CPT/HCPCS: 36415; 70450-TC; 70551-TC; 80048-TC; 80076-TC; 81001; 82962-TC; 83605-TC; 83735-TC; 84100-TC; 84703-TC; 85025-TC; 95819-TC; A4223; C9803; G0378; G0480; J1815; J1953; J2060; J7030; J7040

== ENCOUNTER 2023-02-26 05:38 | Inpatient (IN) | payer BC, OTHER ==
[~2023-02-26] VITALS: Ht 170.2 cm; Wt 60.0 kg
[2023-02-26] VITALS (7 sets, daily range): BP systolic 93–130; BP diastolic 41–88; TEMP 98.3–99; O2SAT 97–98
[~2023-02-26 05:38] MED LIST changes: +LEVE1000 PO
[2023-02-26] MEDS ORDERED: PANTOPRAZOLE 40 MG VIAL ONE (06:41)
[2023-02-26] MEDS ORDERED: OCTREOTIDE 100 MCG/ML VIAL ONE (06:42)
[2023-02-26 06:48] LABS: BASOPHILS # (AUTO) 0.1 K/uL (0.0-0.2); BASOPHILS % (AUTO) 1.3 % (0.0-2.0); EOSINOPHILS % (AUTO) 0.1 % (0.0-6.0); HEMATOCRIT 24 % (33-45); HEMOGLOBIN 8.1 g/dL (11.5-14.8); LYMPHOCYTES # (AUTO) 1.8 K/uL (0.8-4.8); LYMPHOCYTES % (AUTO) 30.9 % (20.0-44.0); MEAN CORPUSCULAR HEMOGLOBIN 34 PG (26.0-33.0); MEAN CORPUSCULAR HGB CONC 34 g/dl (31.0-36.0); MEAN CORPUSCULAR VOLUME 100 fL (82-100); MONOCYTES # (AUTO) 0.5 K/uL (0.1-1.30); MONOCYTES % (AUTO) 9.1 % (2.0-12.0); NEUTROPHILS # (AUTO) 3.4 K/uL (1.8-8.9); NEUTROPHILS % (AUTO) 58.6 % (43.0-81.0); PLATELET COUNT (AUTO) 153 K/uL (150-450); RED BLOOD CELL COUNT(AUTO) 2.42 MIL/uL (4.0-5.2); RED CELL DISTRIBUTION WIDTH 18.3 % (11.5-15.0); WHITE BLOOD COUNT (AUTO) 5.8 K/uL (4.3-11.0)
[2023-02-26] MEDS ORDERED: LORAZEPAM INJ 2 MG/ML VIAL ONE ×2 (06:51→12:12)
[2023-02-26 06:57] LABS: CALCIUM, SERUM 8.3 mg/dL (8.5-10.1); CREATININE 0.6 mg/dL (0.6-1.3); POTASSIUM 3.7 mmol/L (3.5-5.1)
[2023-02-26] MEDS ORDERED: PANTOPRAZOLE 80 MG in IV NS 0.9% 100 ML IV ONE (07:00)
[2023-02-26] MEDS ORDERED: LORAZEPAM INJ 2 MG/ML VIAL IV ONE (07:00)
[2023-02-26] MEDS ORDERED: OCTREOTIDE 50 MCG/ML AMPUL IV ONE (07:00)
[2023-02-26] MEDS ORDERED: IV NS 0.9% 1,000 ML BAG IV ONE (07:00)
[2023-02-26] MEDS ORDERED: OCTREOTIDE 1,250 MCG in IV NS 0.9% 250 ML IV ONE (07:00)
[2023-02-26] MEDS ORDERED: PANTOPRAZOLE 40 MG VIAL IV ONE (07:00)
[2023-02-26 07:02] LABS: ALBUMIN 2.8 g/dL (3.4-5.0); BILIRUBIN,DIRECT 4.3 mg/dL (0.0-0.2); BILIRUBIN,TOTAL 8.1 mg/dL (0.2-1.0); TOTAL PROTEIN, SERUM 6.6 g/dL (6.4-8.2)
[2023-02-26 07:41] LABS: INR 2.05 (0.91-1.10); PARTIAL THROMBOPLASTIN TIME 33.6 SEC (24.3-34.3); PROTHROMBIN TIME 20.7 SECS (9.2-11.1)
[2023-02-26 08:06] LABS: OCCULT BLOOD STOOL NEGATIVE (NEGATIVE)
[2023-02-26] MEDS ORDERED: OCTREOTIDE 50 MCG in IV NS 0.9% 50 ML IJ ONE (08:30)
[2023-02-26] MEDS ORDERED: Z GUARD REMEDY 4 OZ OINT TP PRN (08:30)
[2023-02-26] MEDS ORDERED: PANTOPRAZOLE 80 MG in IV NS 0.9% 500 ML IV PRN (08:30)
[2023-02-26] MEDS ORDERED: OCTREOTIDE 1,250 MCG in IV NS 0.9% 247.5 ML IV PRN (08:30)
[2023-02-26] MEDS ORDERED: LACO100T2 PO (08:50)
[2023-02-26] MEDS ORDERED: LEVE1000 PO (08:50)
[2023-02-26] MEDS ORDERED: DEXTROSE 50%-WATER 50 ML DISP.SYRIN IV PRN (09:00)
[2023-02-26] MEDS: PANTOPRAZOLE 40 MG VIAL IV SCH ×2 (09:00→20:54)
[2023-02-26] MEDS ORDERED: MORPHINE SULFATE INJ 2 MG/ML DISP.SYRIN ONE (11:19)
[2023-02-26] MEDS: MORPHINE SULFATE INJ 2 MG/ML DISP.SYRIN IV PRN (11:26)
[2023-02-26] MEDS: LORAZEPAM INJ 2 MG/ML VIAL IV PRN (12:15)
[2023-02-26] MEDS: BLOOD SUGAR DIAGNOSTIC 1 EACH STRIP IN SCH ×3 (12:22→22:20)
[2023-02-26] MEDS: LEVETIRACETAM (500MG) 1,000 MG in IV NS 0.9% 90 ML IV SCH (14:15)
[2023-02-26] MEDS: Thiamine 100 MG in IV D5W 50 ML IV SCH (14:15)
[2023-02-26] MEDS ORDERED: INSULIN REGULAR, HUMAN 100 UNIT/ML 10 ML VIAL ONE (14:28)
[2023-02-26] MEDS: INSULIN REGULAR, HUMAN 100 UNIT/ML 3 ML VIAL SQ PRN ×2 (14:28→22:22)
[2023-02-26 15:10] LABS: HEMOGLOBIN 6.9 g/dL (11.5-14.8)
[2023-02-26] MEDS: ONDANSETRON HCL/PF 4 MG/2 ML VIAL IVP PRN ×2 (15:37→21:53)
[2023-02-26] MEDS: IV NS 0.9% 1,000 ML IV PRN (21:20)
[2023-02-26 21:57] LABS: HEMOGLOBIN 8.4 g/dL (11.5-14.8)
[2023-02-27] VITALS: BP 92/48; TEMP 98.4; O2SAT 98
[2023-02-27] MEDS ORDERED: LEVETIRACETAM (500MG) 500 MG/5 ML VIAL IV ONE ×2 (01:58→02:01)
[2023-02-27] MEDS: LEVETIRACETAM (500MG) 1,000 MG in IV NS 0.9% 90 ML IV SCH ×3 (02:07→20:52)
[2023-02-27 04:00] VITALS: BP 102/50; TEMP 98.2; O2SAT 99
[2023-02-27] MEDS: ONDANSETRON HCL/PF 4 MG/2 ML VIAL IVP PRN ×2 (06:31→21:22)
[2023-02-27 07:24] LABS: BASOPHILS % (AUTO) 0.8 % (0.0-2.0); EOSINOPHILS # (AUTO) 0.1 K/uL (0.0-0.7); EOSINOPHILS % (AUTO) 1.1 % (0.0-6.0); HEMATOCRIT 24 % (33-45); HEMOGLOBIN 8.4 g/dL (11.5-14.8); LYMPHOCYTES # (AUTO) 1.6 K/uL (0.8-4.8); LYMPHOCYTES % (AUTO) 33.2 % (20.0-44.0); MEAN CORPUSCULAR HEMOGLOBIN 33 PG (26.0-33.0); MEAN CORPUSCULAR HGB CONC 35 g/dl (31.0-36.0); MEAN CORPUSCULAR VOLUME 96 fL (82-100); MONOCYTES # (AUTO) 0.3 K/uL (0.1-1.30); NEUTROPHILS # (AUTO) 2.9 K/uL (1.8-8.9); NEUTROPHILS % (AUTO) 58.9 % (43.0-81.0); PLATELET COUNT (AUTO) 63 K/uL (150-450); RED BLOOD CELL COUNT(AUTO) 2.51 MIL/uL (4.0-5.2)
[2023-02-27 07:27] LABS: CREATININE 0.5 mg/dL (0.6-1.3); MAGNESIUM 1.4 mg/dL (1.8-2.4); PHOSPHORUS 2.9 mg/dL (2.5-4.9); POTASSIUM 3.5 mmol/L (3.5-5.1)
[2023-02-27] MEDS: BLOOD SUGAR DIAGNOSTIC 1 EACH STRIP IN SCH ×4 (07:45→21:28)
[2023-02-27 08:00] VITALS: BP 103/50; TEMP 98; O2SAT 95
[2023-02-27] MEDS: PANTOPRAZOLE 40 MG VIAL IV SCH ×2 (08:51→20:52)
[2023-02-27] MEDS: LORAZEPAM INJ 2 MG/ML VIAL IV PRN (09:41)
[2023-02-27] MEDS: IV NS 0.9% 1,000 ML IV PRN (09:49)
[2023-02-27] MEDS: Magnesium 1GM/D5W 100ML PREMIX 100 ML IV SCH ×4 (11:04→14:00)
[2023-02-27 11:26] LABS: PLATELET ESTIMATE DECREASED
[2023-02-27 11:28] LABS: ANISOCYTOSIS 1+
[2023-02-27 12:00] VITALS: BP 104/53; TEMP 98.4; O2SAT 95
[2023-02-27] MEDS: CEFTRIAXONE 1 G in IV D5W 50 ML IV SCH (13:11)
[2023-02-27] MEDS: Thiamine 100 MG in IV D5W 50 ML IV SCH (14:22)
[2023-02-27] MEDS ORDERED: IV NS 0.9% 250 ML IV PRN (14:30)
[2023-02-27 16:00] VITALS: BP 109/62; TEMP 97.8; O2SAT 95
[2023-02-27] MEDS ORDERED: ONDANSETRON HCL/PF 4 MG/2 ML VIAL ONE (18:11)
[2023-02-27] MEDS ORDERED: ANESTHESIA TRAY IN PYXIS 1 EA TRAY MC ONE (18:21)
[2023-02-27] MEDS: MORPHINE SULFATE INJ 2 MG/ML DISP.SYRIN IV PRN (19:38)
[2023-02-27 20:00] VITALS: BP 120/64; TEMP 98.9; O2SAT 93
[2023-02-27 20:38] LABS: HEMOGLOBIN 7.7 g/dL (11.5-14.8)
[2023-02-27] MEDS: INSULIN REGULAR, HUMAN 100 UNIT/ML 3 ML VIAL SQ PRN (22:16)
[2023-02-28] VITALS (7 sets, daily range): BP systolic 88–119; BP diastolic 42–70; TEMP 97.8–98.9; O2SAT 94–98
[2023-02-28] MEDS: LORAZEPAM INJ 2 MG/ML VIAL IV PRN (01:30)
[2023-02-28] MEDS: IV NS 0.9% 1,000 ML IV PRN ×2 (03:24→18:05)
[2023-02-28] MEDS: ONDANSETRON HCL/PF 4 MG/2 ML VIAL IVP PRN (03:24)
[2023-02-28] MEDS: BLOOD SUGAR DIAGNOSTIC 1 EACH STRIP IN SCH ×4 (06:55→22:12)
[2023-02-28 07:06] LABS: CALCIUM, SERUM 7.8 mg/dL (8.5-10.1); CREATININE 0.6 mg/dL (0.6-1.3); POTASSIUM 3.2 mmol/L (3.5-5.1)
[2023-02-28 07:09] LABS: BASOPHILS % (AUTO) 0.4 % (0.0-2.0); EOSINOPHILS # (AUTO) 0.1 K/uL (0.0-0.7); HEMATOCRIT 23 % (33-45); LYMPHOCYTES # (AUTO) 0.8 K/uL (0.8-4.8); LYMPHOCYTES % (AUTO) 12.6 % (20.0-44.0); MEAN CORPUSCULAR HEMOGLOBIN 33 PG (26.0-33.0); MEAN CORPUSCULAR HGB CONC 34 g/dl (31.0-36.0); MEAN CORPUSCULAR VOLUME 98 fL (82-100); MONOCYTES # (AUTO) 0.3 K/uL (0.1-1.30); MONOCYTES % (AUTO) 4.9 % (2.0-12.0); NEUTROPHILS # (AUTO) 4.9 K/uL (1.8-8.9); NEUTROPHILS % (AUTO) 81.1 % (43.0-81.0); PLATELET COUNT (AUTO) 51 K/uL (150-450); RED BLOOD CELL COUNT(AUTO) 2.38 MIL/uL (4.0-5.2); RED CELL DISTRIBUTION WIDTH 19.2 % (11.5-15.0)
[2023-02-28] MEDS: PROPRANOLOL HCL 10 MG TABLET PO SCH ×2 (08:05→17:02)
[2023-02-28] MEDS: THIAMINE HCL 100 MG TABLET PO SCH (08:34)
[2023-02-28] MEDS: PANTOPRAZOLE 40 MG TABLET.DR PO SCH ×2 (08:34→20:50)
[2023-02-28] MEDS: LEVETIRACETAM (250 MG) 250 MG TABLET PO SCH ×2 (08:34→20:50)
[2023-02-28] MEDS ORDERED: TRAMADOL HCL 50 MG TABLET PO SCH (09:00)
[2023-02-28] MEDS: TRAMADOL HCL 50 MG TABLET PO PRN (09:01)
[2023-02-28 10:03] LABS: ANISOCYTOSIS 1+; BASOPHILS % (MANUAL) 0 % (0.0-2.0); EOSINOPHILS % (MANUAL) 0 % (0-4); HYPOCHROMASIA 1+; LYMPHOCYTES % (MANUAL) 7 % (16-48); MONOCYTES % (MANUAL) 5 % (0-11.0); NEUTROPHILS % (MANUAL) 88 (42-76); PLATELET ESTIMATE DECREASED
[2023-02-28] MEDS: CEFTRIAXONE 1 G in IV D5W 50 ML IV SCH (11:03)
[2023-02-28] MEDS: POTASSIUM CHLORIDE 20 MEQ TAB.PRT.SR PO SCH ×2 (11:50→12:59)
[2023-02-28] MEDS: METOCLOPRAMIDE HCL 10 MG/2 ML VIAL IV SCH ×3 (12:59→23:45)
[2023-02-28] MEDS ORDERED: TRAZODONE 50 MG TABLET PO PRN (13:30)
[2023-02-28] MEDS ORDERED: SERTRALINE HCL 50 MG TABLET PO SCH (13:30)
[2023-02-28] MEDS: LACTULOSE 10 G/15 ML UDC (PYXIS) PO SCH ×2 (13:30→14:29)
[2023-02-28] MEDS: FUROSEMIDE 20 MG TABLET PO SCH (14:29)
[2023-02-28] MEDS: LACOSAMIDE 50 MG TABLET PO SCH ×2 (14:29→20:50)
[2023-02-28] MEDS: SPIRONOLACTONE 25 MG TABLET PO SCH (14:30)
[2023-02-28 15:24] LABS: HEMOGLOBIN 7.5 g/dL (11.5-14.8)
[2023-02-28] MEDS: RIFAXIMIN 550 MG TABLET PO SCH (17:02)
[2023-02-28] MEDS: INSULIN REGULAR, HUMAN 100 UNIT/ML 3 ML VIAL SQ PRN (22:23)
[2023-03-01 00:45] VITALS: BP 93/59
[2023-03-01 01:29] VITALS: BP 88/42; TEMP 98.6; O2SAT 92
[2023-03-01 04:00] VITALS: BP 94/52; TEMP 98.2; O2SAT 94
[2023-03-01] MEDS: METOCLOPRAMIDE HCL 10 MG/2 ML VIAL IV SCH ×2 (05:38→12:09)
[2023-03-01 06:55] LABS: BASOPHILS % (AUTO) 0.8 % (0.0-2.0); EOSINOPHILS # (AUTO) 0.1 K/uL (0.0-0.7); EOSINOPHILS % (AUTO) 1.1 % (0.0-6.0); HEMATOCRIT 24 % (33-45); HEMOGLOBIN 8.3 g/dL (11.5-14.8); MEAN CORPUSCULAR HEMOGLOBIN 34 PG (26.0-33.0); MEAN CORPUSCULAR HGB CONC 34 g/dl (31.0-36.0); MEAN CORPUSCULAR VOLUME 99 fL (82-100); MONOCYTES # (AUTO) 0.4 K/uL (0.1-1.30); MONOCYTES % (AUTO) 8.8 % (2.0-12.0); NEUTROPHILS # (AUTO) 3.3 K/uL (1.8-8.9); NEUTROPHILS % (AUTO) 68.3 % (43.0-81.0); PLATELET COUNT (AUTO) 59 K/uL (150-450); RED BLOOD CELL COUNT(AUTO) 2.44 MIL/uL (4.0-5.2); RED CELL DISTRIBUTION WIDTH 19.4 % (11.5-15.0); WHITE BLOOD COUNT (AUTO) 4.8 K/uL (4.3-11.0)
[2023-03-01] MEDS: INSULIN REGULAR, HUMAN 100 UNIT/ML 3 ML VIAL SQ PRN ×3 (07:12→12:11)
[2023-03-01] MEDS: BLOOD SUGAR DIAGNOSTIC 1 EACH STRIP IN SCH ×2 (07:12→12:09)
[2023-03-01 08:43] LABS: CALCIUM, SERUM 8.1 mg/dL (8.5-10.1); CREATININE 0.6 mg/dL (0.6-1.3); POTASSIUM 3.6 mmol/L (3.5-5.1)
[2023-03-01] MEDS: LACTULOSE 10 G/15 ML UDC (PYXIS) PO SCH (09:00)
[2023-03-01] MEDS: FUROSEMIDE 20 MG TABLET PO SCH (09:07)
[2023-03-01] MEDS: PANTOPRAZOLE 40 MG TABLET.DR PO SCH (09:07)
[2023-03-01] MEDS: SPIRONOLACTONE 25 MG TABLET PO SCH (09:07)
[2023-03-01 09:08] VITALS: BP 111/71
[2023-03-01] MEDS: THIAMINE HCL 100 MG TABLET PO SCH (09:08)
[2023-03-01] MEDS: PROPRANOLOL HCL 10 MG TABLET PO SCH (09:08)
[2023-03-01] MEDS: LEVETIRACETAM (250 MG) 250 MG TABLET PO SCH (09:08)
[2023-03-01] MEDS: LACOSAMIDE 50 MG TABLET PO SCH (09:08)
[2023-03-01] MEDS: RIFAXIMIN 550 MG TABLET PO SCH (09:09)
[2023-03-01] MEDS: TRAMADOL HCL 50 MG TABLET PO PRN (09:50)
[2023-03-01 11:01] LABS: ANISOCYTOSIS 1+; BASOPHILS % (MANUAL) 0 % (0.0-2.0); EOSINOPHILS % (MANUAL) 2 % (0-4); LYMPHOCYTES % (MANUAL) 17 % (16-48); MONOCYTES % (MANUAL) 9 % (0-11.0); NEUTROPHILS % (MANUAL) 72 (42-76); PLATELET ESTIMATE DECREASED
[2023-03-01] MEDS: CEFTRIAXONE 1 G in IV D5W 50 ML IV SCH (12:08)
[2023-03-01] MEDS ORDERED: PANT40TA2 PO (12:45)
== END 2023-03-01 17:52 | disposition home or self-care (01) | DRG 432 ==
LOC: ER 05:40 → TELE-TD 14:35 → MEDSG1 02-28 13:23
PROVIDERS: ADMIT Nurse Practitioner Acute Care; ATTEND Nurse Practitioner Acute Care
PROC: 30233N1 Transfusion of Nonautologous Red Blood Cells into Peripheral Vein, Percutaneous Approach (ICD-10-PCS; principal; 2023-02-26)
PROC: 0DB68ZX Excision of Stomach, Via Natural or Artificial Opening Endoscopic, Diagnostic (ICD-10-PCS; 2023-02-27)
PROC: 06L38CZ Occlusion of Esophageal Vein with Extraluminal Device, Via Natural or Artificial Opening Endoscopic (ICD-10-PCS; 2023-02-27)
DX: K70.31 Alcoholic cirrhosis of liver with ascites (principal); I85.11 Secondary esophageal varices with bleeding; E44.0 Moderate protein-calorie malnutrition; R64 Cachexia; Z68.1 Body mass index [BMI] 19.9 or less, adult; K76.6 Portal hypertension; K70.30 Alcoholic cirrhosis of liver without ascites; F17.200 Nicotine dependence, unspecified, uncomplicated; Z87.19 Personal history of other diseases of the digestive system; G40.909 Epilepsy, unspecified, not intractable, without status epilepticus; E11.9 Type 2 diabetes mellitus without complications; Z87.898 Personal history of other specified conditions; Z91.030 Bee allergy status; Z79.4 Long term (current) use of insulin; Z79.899 Other long term (current) drug therapy; K31.89 Other diseases of stomach and duodenum; Z91.81 History of falling; K26.9 Duodenal ulcer, unspecified as acute or chronic, without hemorrhage or perforation; Z98.890 Other specified postprocedural states
CPT/HCPCS: 36415; 71045-TC; 76700-TC; 80048-TC; 80076-TC; 82140-TC; 82272-TC; 82962-TC; 83690-TC; 83735-TC; 84100-TC; 84702-TC; 85025-TC; 85027-TC; 85730-TC; 86850-TC; A4223; C9113; G0378; J0696; J1815; J1953; J2060; J2270; J2354; J2405; J2704; J2765; J3411; J3475; J3490; J7030; J7040; J7050; J7060; P9016

== ENCOUNTER 2023-06-12 00:45 | Inpatient (IN) | payer BC ==
[~2023-06-12] VITALS: Ht 165.1 cm; Wt 67.6 kg
[~2023-06-12 00:45] MED LIST changes: +LACO100T2 PO; -LEVE500T9 PO; -LIDO30AD10 TP
[2023-06-12] MEDS ORDERED: LEVETIRACETAM (500MG) 500 MG/5 ML VIAL IV ONE (01:09)
[2023-06-12] MEDS: IV NS 0.9% 1,000 ML IV ONE ×2 (01:12→03:30)
[2023-06-12] MEDS: LEVETIRACETAM (500MG) 1,000 MG in IV NS 0.9% 90 ML IV SCH (01:12)
[2023-06-12 01:17] LABS: BASOPHILS # (AUTO) 0.1 K/uL (0.0-0.2); BASOPHILS % (AUTO) 1.4 % (0.0-2.0); EOSINOPHILS % (AUTO) 0.9 % (0.0-6.0); HEMATOCRIT 33 % (33-45); HEMOGLOBIN 10.8 g/dL (11.5-14.8); LYMPHOCYTES # (AUTO) 1.3 K/uL (0.8-4.8); LYMPHOCYTES % (AUTO) 29.8 % (20.0-44.0); MEAN CORPUSCULAR HEMOGLOBIN 32 PG (26.0-33.0); MEAN CORPUSCULAR HGB CONC 33 g/dl (31.0-36.0); MEAN CORPUSCULAR VOLUME 99 fL (82-100); MONOCYTES # (AUTO) 0.6 K/uL (0.1-1.30); MONOCYTES % (AUTO) 13.4 % (2.0-12.0); NEUTROPHILS # (AUTO) 2.3 K/uL (1.8-8.9); NEUTROPHILS % (AUTO) 54.5 % (43.0-81.0); PLATELET COUNT (AUTO) 64 K/uL (150-450); RED BLOOD CELL COUNT(AUTO) 3.34 MIL/uL (4.0-5.2); WHITE BLOOD COUNT (AUTO) 4.2 K/uL (4.3-11.0)
[2023-06-12 01:40] LABS: ALBUMIN 2.7 g/dL (3.4-5.0); BILIRUBIN,TOTAL 5.6 mg/dL (0.2-1.0); CALCIUM, SERUM 7.9 mg/dL (8.5-10.1); CREATININE 0.5 mg/dL (0.6-1.3); POTASSIUM 3.8 mmol/L (3.5-5.1); TOTAL PROTEIN, SERUM 8.1 g/dL (6.4-8.2)
[2023-06-12 02:11] LABS: APPEARANCE,URINE SLIGHTLY CLOUDY (CLEAR); BILIRUBIN,URINE 3+ (NEGATIVE); BLOOD, URINE NEGATIVE Ery/uL (NEGATIVE); COLOR,URINE DARK YELLOW (YELLOW); KETONES,URINE TRACE mg/dL (NEGATIVE); LEUKOCYTE ESTERASE ,URINE NEGATIVE (NEGATIVE); NITRITE, URINE POSITIVE (NEGATIVE); PROTEIN,URINE TRACE mg/dl (NEGATIVE); UGLUCOSE NEGATIVE (NEGATIVE)
[2023-06-12 02:19] LABS: PREGNANCY TEST URINE QUAL NEGATIVE (NEGATIVE)
[2023-06-12 02:34] LABS: ADD URINE CULTURE YES; BACTERIA,URINE 4+ /HPF (None Seen); MUCUS,URINE Moderate /LPF (None Seen); RBC,URINE NONE SEEN /HPF (0-2); WBC,URINE 0-2 /HPF (0-3)
[2023-06-12 02:58] LABS: AMPHETAMINE, URINE NEGATIVE (NEGATIVE); BARBITURATE, URINE NEGATIVE (NEGATIVE); COCCAINE, URINE NEGATIVE (NEGATIVE); OPIATE, URINE NEGATIVE (NEGATIVE); PHENCYCLIDINE SCREEN,URINE NEGATIVE (NEGATIVE)
[2023-06-12 03:00] LABS: BENZODIAZEPINE, URINE POSITIVE (NEGATIVE)
[2023-06-12 03:17] LABS: CANNABINOID, URINE NEGATIVE (NEGATIVE)
[2023-06-12 04:13] LABS: PLATELET ESTIMATE DECREASED
[2023-06-12] MEDS ORDERED: MORPHINE SULFATE INJ 2 MG/ML DISP.SYRIN IV PRN (05:30)
[2023-06-12] MEDS: IV NS 0.9% 1,000 ML IV SCH (05:30)
[2023-06-12] MEDS ORDERED: MAG HYDROX/AL HYDROX/SIMETH 30 ML UDC PO PRN (05:30)
[2023-06-12] MEDS ORDERED: LORAZEPAM INJ 2 MG/ML VIAL ONE (05:37)
[2023-06-12] MEDS ORDERED: ONDANSETRON HCL/PF 4 MG/2 ML VIAL ONE (05:37)
[2023-06-12] MEDS: LORAZEPAM INJ 2 MG/ML VIAL IV ONE (05:47)
[2023-06-12] MEDS: ONDANSETRON HCL/PF - ER 4 MG/2 ML VIAL IV ONE (05:47)
[2023-06-12] MEDS ORDERED: CEFTRIAXONE 1GM BAG (ER ONLY) 50 ML IV ONE (07:11)
[2023-06-12] MEDS: CEFTRIAXONE 1GM BAG (ER ONLY) 1 GM/50 ML PIGGYBACK IV ONE (07:20)
[2023-06-12 08:00] VITALS: BP 94/43; TEMP 98.6; O2SAT 96
[2023-06-12] MEDS: LACOSAMIDE 50 MG TABLET PO SCH ×2 (08:54→20:07)
[2023-06-12] MEDS: LEVETIRACETAM (250 MG) 250 MG TABLET PO SCH (08:54)
[2023-06-12] MEDS: CHLORDIAZEPOXIDE HCL 25 MG CAPSULE PO SCH (08:55)
[2023-06-12] MEDS: SPIRONOLACTONE 25 MG TABLET PO SCH (08:55)
[2023-06-12] MEDS: THIAMINE HCL 100 MG TABLET PO SCH (08:56)
[2023-06-12] MEDS: PANTOPRAZOLE 40 MG TABLET.DR PO SCH (08:56)
[2023-06-12] MEDS: FUROSEMIDE 20 MG TABLET PO SCH (08:56)
[2023-06-12] MEDS: SERTRALINE HCL 50 MG TABLET PO SCH (08:56)
[2023-06-12] MEDS: RIFAXIMIN 550 MG TABLET PO SCH (08:57)
[2023-06-12] MEDS: HEPARIN SODIUM, PORCINE 5000 UNITS/1 ML VIAL SQ SCH (08:59)
[2023-06-12] MEDS: ACETAMINOPHEN 325 MG TABLET PO PRN (09:00)
[2023-06-12] MEDS: LACTULOSE 10 G/15 ML UDC (PYXIS) PO SCH (09:00)
[2023-06-12 11:44] LABS: PROTHROMBIN TIME 20.3 SECS (9.2-11.1)
[2023-06-12] MEDS: PROPRANOLOL HCL 10 MG TABLET PO PRN (13:14)
[2023-06-12] MEDS: ONDANSETRON HCL/PF 4 MG/2 ML VIAL IVP PRN (13:15)
[2023-06-12] MEDS: INSULIN ASPART/LISPRO 100 UNIT/ML CARTRIDGE SQ SCH (13:17)
[2023-06-12 16:00] VITALS: BP 99/65; TEMP 98.8; O2SAT 94
[2023-06-12] MEDS: LORAZEPAM INJ 2 MG/ML VIAL IV PRN (16:37)
[2023-06-12] MEDS: PENTOXIFYLLINE 400 MG TABLET.SA PO SCH (16:51)
[2023-06-12] MEDS ORDERED: prednisoLONE 5 MG/5 ML UDC PO SCH (17:00)
[2023-06-12] MEDS ORDERED: LORAZEPAM INJ 2 MG/ML VIAL IV PRN (17:00)
[2023-06-12 18:03] LABS: PHOSPHORUS 2.3 mg/dL (2.5-4.9)
[2023-06-12 18:34] LABS: MAGNESIUM 0.8 mg/dL (1.8-2.4)
[2023-06-12] MEDS: prednisoLONE 15 MG/5 ML UDC PO SCH (18:48)
[2023-06-12] MEDS ORDERED: DEXTROSE 50%-WATER 50 ML DISP.SYRIN IV PRN (19:00)
[2023-06-12] MEDS: IV NS 0.9% 1,000 ML IV PRN (19:36)
[2023-06-12 20:00] VITALS: BP 95/62; TEMP 98.2; O2SAT 95
[2023-06-12] MEDS: MAGNESIUM OXIDE 400 MG TABLET PO SCH (21:26)
[2023-06-12] MEDS: BLOOD SUGAR DIAGNOSTIC 1 EACH STRIP IN SCH (21:41)
[2023-06-12] MEDS: TRAZODONE 50 MG TABLET PO SCH (21:42)
[2023-06-12] MEDS: INSULIN REGULAR, HUMAN 100 UNIT/ML 3 ML VIAL SQ PRN (21:47)
[2023-06-12] MEDS: INSULIN GLARGINE, 100 UNIT/ML CARTRIDGE SQ SCH (21:49)
[2023-06-13 00:30] VITALS: BP 95/55; TEMP 98.4; O2SAT 95
[2023-06-13 04:00] VITALS: BP 104/74; TEMP 97.7; O2SAT 95
[2023-06-13] MEDS ORDERED: PANTOPRAZOLE 40 MG TABLET.DR PO SCH (07:30)
[2023-06-13 08:00] VITALS: BP 95/58; TEMP 98.8; O2SAT 98
[2023-06-13 08:26] LABS: ALBUMIN 2.2 g/dL (3.4-5.0); BILIRUBIN,TOTAL 7.3 mg/dL (0.2-1.0); CALCIUM, SERUM 7.9 mg/dL (8.5-10.1); CREATININE 0.5 mg/dL (0.6-1.3); PHOSPHORUS 3.1 mg/dL (2.5-4.9); POTASSIUM 3.8 mmol/L (3.5-5.1)
[2023-06-13 08:41] LABS: BASOPHILS % (AUTO) 0.2 % (0.0-2.0); EOSINOPHILS % (AUTO) 0.1 % (0.0-6.0); HEMATOCRIT 29 % (33-45); HEMOGLOBIN 9.6 g/dL (11.5-14.8); LYMPHOCYTES # (AUTO) 0.3 K/uL (0.8-4.8); MEAN CORPUSCULAR HEMOGLOBIN 33 PG (26.0-33.0); MEAN CORPUSCULAR HGB CONC 33 g/dl (31.0-36.0); MEAN CORPUSCULAR VOLUME 100 fL (82-100); MONOCYTES # (AUTO) 0.1 K/uL (0.1-1.30); MONOCYTES % (AUTO) 3.8 % (2.0-12.0); NEUTROPHILS # (AUTO) 1.2 K/uL (1.8-8.9); NEUTROPHILS % (AUTO) 76.9 % (43.0-81.0); RED BLOOD CELL COUNT(AUTO) 2.93 MIL/uL (4.0-5.2); RED CELL DISTRIBUTION WIDTH 18.1 % (11.5-15.0)
[2023-06-13 08:56] LABS: PLATELET COUNT (AUTO) 32 K/uL (150-450); WHITE BLOOD COUNT (AUTO) 1.6 K/uL (4.3-11.0)
[2023-06-13 09:01] LABS: MAGNESIUM 1.2 mg/dL (1.8-2.4)
[2023-06-13 13:36] LABS: ANISOCYTOSIS 1+; LYMPHOCYTES % (MANUAL) 17 % (16-48); MONOCYTES % (MANUAL) 3 % (0-11.0); NEUTROPHILS % (MANUAL) 80 (42-76); PLATELET ESTIMATE DECREASED
[2023-06-13 13:37] LABS: TEAR DROP CELLS 1+
[2023-06-13] MEDS ORDERED: MAGN400T8 PO (13:52)
== END 2023-06-13 12:30 | disposition left against medical advice (07) | DRG 101 ==
LOC: ER 00:47 → TELE 07:37
PROVIDERS: ADMIT Nurse Practitioner Acute Care; ATTEND Nurse Practitioner Acute Care
DX: G40.909 Epilepsy, unspecified, not intractable, without status epilepticus (principal); K76.6 Portal hypertension; R18.8 Other ascites; D68.9 Coagulation defect, unspecified; K70.9 Alcoholic liver disease, unspecified; K74.60 Unspecified cirrhosis of liver; E11.9 Type 2 diabetes mellitus without complications; F10.129 Alcohol abuse with intoxication, unspecified; Y90.8 Blood alcohol level of 240 mg/100 ml or more; Z53.29 Procedure and treatment not carried out because of patient's decision for other reasons; Z87.19 Personal history of other diseases of the digestive system; Z91.040 Latex allergy status; Z88.8 Allergy status to other drugs, medicaments and biological substances; Z91.018 Allergy to other foods; Z91.030 Bee allergy status; Z79.4 Long term (current) use of insulin; Z79.899 Other long term (current) drug therapy; Z98.890 Other specified postprocedural states; F17.200 Nicotine dependence, unspecified, uncomplicated; D69.6 Thrombocytopenia, unspecified; D63.8 Anemia in other chronic diseases classified elsewhere; E80.6 Other disorders of bilirubin metabolism; R74.01 Elevation of levels of liver transaminase levels; E83.42 Hypomagnesemia; D72.819 Decreased white blood cell count, unspecified
CPT/HCPCS: 36415; 70450-TC; 80053-TC; 81001; 82962-TC; 83605-TC; 83735-TC; 84100-TC; 84703-TC; 85025-TC; 85610-TC; 87040-TC; 87086-TC; A4223; G0378; G0480; J0696; J1644; J1815; J1953; J2060; J2405; J7030; J7510

== ENCOUNTER 2023-07-31 01:04 | Inpatient (IN) | payer BC ==
[~2023-07-31] VITALS: Ht 165.1 cm; Wt 74.9 kg
[2023-07-31] VITALS (85 sets, daily range): BP systolic 75–172; BP diastolic 40–99; TEMP 96.7–99; O2SAT 93–100
[~2023-07-31 01:04] MED LIST changes: +MAGN400T8 PO
[2023-07-31] MEDS ORDERED: PANTOPRAZOLE 40 MG VIAL ONE (01:11)
[2023-07-31] MEDS ORDERED: ONDANSETRON HCL/PF 4 MG/2 ML VIAL ONE (01:12)
[2023-07-31] MEDS ORDERED: OCTREOTIDE 100 MCG/ML VIAL ONE ×2 (01:12→01:54)
[2023-07-31 01:32] LABS: BASOPHILS # (AUTO) 0.1 K/uL (0.0-0.2); BASOPHILS % (AUTO) 1.5 % (0.0-2.0); EOSINOPHILS % (AUTO) 0.4 % (0.0-6.0); LYMPHOCYTES # (AUTO) 1.8 K/uL (0.8-4.8); LYMPHOCYTES % (AUTO) 20.5 % (20.0-44.0); MEAN CORPUSCULAR HEMOGLOBIN 37 PG (26.0-33.0); MEAN CORPUSCULAR HGB CONC 35 g/dl (31.0-36.0); MEAN CORPUSCULAR VOLUME 108 fL (82-100); MONOCYTES # (AUTO) 1.5 K/uL (0.1-1.30); NEUTROPHILS # (AUTO) 5.5 K/uL (1.8-8.9); NEUTROPHILS % (AUTO) 60.6 % (43.0-81.0); PLATELET COUNT (AUTO) 180 K/uL (150-450); RED CELL DISTRIBUTION WIDTH 23.8 % (11.5-15.0)
[2023-07-31 01:40] LABS: HEMATOCRIT 17 % (33-45)
[2023-07-31] MEDS: IV NS 0.9% 1,000 ML BAG IV ONE ×2 (01:40→02:46)
[2023-07-31 01:43] LABS: CALCIUM, SERUM 7.9 mg/dL (8.5-10.1); CREATININE 1.9 mg/dL (0.6-1.3); POTASSIUM 4.2 mmol/L (3.5-5.1)
[2023-07-31] MEDS: PANTOPRAZOLE 40 MG VIAL IV ONE (01:54)
[2023-07-31] MEDS: OCTREOTIDE 50 MCG/ML AMPUL IV ONE (01:54)
[2023-07-31] MEDS ORDERED: OCTREOTIDE 500 MCG/ML VIAL ONE (01:54)
[2023-07-31] MEDS: ONDANSETRON HCL/PF 4 MG/2 ML VIAL IVP ONE (01:54)
[2023-07-31 01:56] LABS: INR 2.94 (0.91-1.10); PARTIAL THROMBOPLASTIN TIME 53.6 SEC (24.3-34.3); THYROID STIMULATING HORMONE 2.689 uIU/mL (0.358-3.74)
[2023-07-31 01:58] LABS: ALBUMIN 1.6 g/dL (3.4-5.0); BILIRUBIN,DIRECT 18.8 mg/dL (0.0-0.2); BILIRUBIN,TOTAL 24.5 mg/dL (0.2-1.0); TOTAL PROTEIN, SERUM 5.5 g/dL (6.4-8.2)
[2023-07-31] MEDS: OCTREOTIDE 1,250 MCG in IV NS 0.9% 250 ML IV ONE (02:00)
[2023-07-31 02:05] LABS: BAND % (MANUAL) 3 % (0.0-5.0); LYMPHOCYTES % (MANUAL) 20 % (16-48); MONOCYTES % (MANUAL) 14 % (0-11.0); NEUTROPHILS % (MANUAL) 63 (42-76)
[2023-07-31 02:06] LABS: PLATELET ESTIMATE ADEQUATE
[2023-07-31 03:14] LABS: PREGNANCY TEST URINE QUAL NEGATIVE (NEGATIVE)
[2023-07-31 03:26] LABS: AMPHETAMINE, URINE NEGATIVE (NEGATIVE); BARBITURATE, URINE NEGATIVE (NEGATIVE); BENZODIAZEPINE, URINE NEGATIVE (NEGATIVE); CANNABINOID, URINE NEGATIVE (NEGATIVE); COCCAINE, URINE NEGATIVE (NEGATIVE); OPIATE, URINE NEGATIVE (NEGATIVE); PHENCYCLIDINE SCREEN,URINE NEGATIVE (NEGATIVE)
[2023-07-31] MEDS ORDERED: OCTREOTIDE 500 MCG in IV NS 0.9% 99 ML IV SCH (03:30)
[2023-07-31] MEDS ORDERED: NOREPINEPHRINE 8 MG in IV D5W 242 ML IV PRN (03:30)
[2023-07-31 04:23] LABS: BASOPHILS # (AUTO) 0.1 K/uL (0.0-0.2); EOSINOPHILS % (AUTO) 0.3 % (0.0-6.0); LYMPHOCYTES # (AUTO) 1.4 K/uL (0.8-4.8); LYMPHOCYTES % (AUTO) 18.1 % (20.0-44.0); MEAN CORPUSCULAR HEMOGLOBIN 38 PG (26.0-33.0); MEAN CORPUSCULAR HGB CONC 34 g/dl (31.0-36.0); MEAN CORPUSCULAR VOLUME 110 fL (82-100); MONOCYTES # (AUTO) 1.5 K/uL (0.1-1.30); MONOCYTES % (AUTO) 18.9 % (2.0-12.0); NEUTROPHILS # (AUTO) 4.8 K/uL (1.8-8.9); NEUTROPHILS % (AUTO) 61.7 % (43.0-81.0); PLATELET COUNT (AUTO) 117 K/uL (150-450); RED CELL DISTRIBUTION WIDTH 23.3 % (11.5-15.0); WHITE BLOOD COUNT (AUTO) 7.8 K/uL (4.3-11.0)
[2023-07-31 04:32] LABS: INR 3.09 (0.91-1.10); PROTHROMBIN TIME 30.4 SECS (9.2-11.1)
[2023-07-31 04:40] LABS: SERUM AMMONIA 156 umol/L (11-32)
[2023-07-31 04:46] LABS: HEMOGLOBIN 4.9 g/dL (11.5-14.8)
[2023-07-31 04:47] LABS: HEMATOCRIT 14 % (33-45)
[2023-07-31 04:53] LABS: ALANINE AMINOTRANSFERASE 28 U/L (12-78); ALBUMIN 1.5 g/dL (3.4-5.0); ALKALINE PHOSPHATASE 208 U/L (46-116); ASPARTATE AMINOTRANSFERASE 185 U/L (15-37); BILIRUBIN,DIRECT 18.4 mg/dL (0.0-0.2); BILIRUBIN,TOTAL 22.4 mg/dL (0.2-1.0); CALCIUM, SERUM 7.2 mg/dL (8.5-10.1); CARBON DIOXIDE 23 mmol/L (21-32); CHLORIDE 91 mmol/L (98-107); CREATININE 1.9 mg/dL (0.6-1.3); GLUCOSE 145 mg/dL (74-106); MAGNESIUM 2.4 mg/dL (1.8-2.4); PHOSPHORUS 3.4 mg/dL (2.5-4.9); POTASSIUM 3.9 mmol/L (3.5-5.1); SODIUM SERUM 129 mmol/L (136-145); TOTAL PROTEIN, SERUM 4.9 g/dL (6.4-8.2); UREA NITROGEN, BLOOD 37 mg/dL (7-18)
[2023-07-31] MEDS: IV NS 0.9% 1,000 ML IV SCH (05:46)
[2023-07-31] MEDS: PANTOPRAZOLE 40 MG VIAL IV SCH ×2 (08:38→22:01)
[2023-07-31] MEDS: ONDANSETRON HCL/PF 4 MG/2 ML VIAL IVP PRN (08:56)
[2023-07-31] MEDS: OCTREOTIDE 1,250 MCG in IV NS 0.9% 247.5 ML IV PRN (10:00)
[2023-07-31 10:30] LABS: HEMOGLOBIN 8.9 g/dL (11.5-14.8)
[2023-07-31] MEDS: LORAZEPAM INJ 2 MG/ML VIAL IV PRN (10:53)
[2023-07-31] MEDS: LACTULOSE 10 G/15 ML UDC (PYXIS) NG ONE (11:01)
[2023-07-31] MEDS: VANCOMYCIN HCL 1.25 GM in IV D5W 250 ML IV ONE (11:04)
[2023-07-31] MEDS: KETAMINE HCL IN 0.9 % NACL 50 MG/5 ML SYRINGE IV ONE (11:30)
[2023-07-31] MEDS ORDERED: ROCURONIUM BROMIDE 50 MG/5 ML ONE (11:34)
[2023-07-31] MEDS ORDERED: KETAMINE HCL(200MG/20ML) 10 MG/ML VIAL IV ONE (12:00)
[2023-07-31] MEDS: PRECEDEX 400 MCG/100 ML BOTTLE 100 ML IV PRN (12:20)
[2023-07-31] MEDS: NOREPINEPHRINE 8 MG in IV D5W 242 ML IV PRN (14:10)
[2023-07-31] MEDS: LACTULOSE UDC 200 G in SODIUM CHLORIDE IRRIG SOLUTION 400 ML IR SCH (14:14)
[2023-07-31] MEDS ORDERED: CEFTRIAXONE 1 G VIAL IM SCH (14:30)
[2023-07-31] MEDS: PHYTONADIONE INJ 10 MG/1 ML AMPUL SQ ONE ×2 (15:08)
[2023-07-31] MEDS ORDERED: ETOMIDATE 2 MG/ML VIAL IV ONE (15:17)
[2023-07-31 15:26] LABS: INR 1.85 (0.91-1.10); PROTHROMBIN TIME 18.8 SECS (9.2-11.1)
[2023-07-31] MEDS: CEFTRIAXONE 1 G in IV D5W 50 ML IV SCH (15:47)
[2023-07-31] MEDS ORDERED: DEXTROSE 50%-WATER 50 ML DISP.SYRIN IV PRN (16:00)
[2023-07-31] MEDS: BLOOD SUGAR DIAGNOSTIC 1 EACH STRIP IN SCH (17:04)
[2023-07-31 17:21] LABS: HEMOGLOBIN 10.7 g/dL (11.5-14.8)
[2023-07-31] MEDS: INSULIN REGULAR, HUMAN 100 UNIT/ML 3 ML VIAL SQ PRN (17:25)
[2023-07-31 17:33] LABS: APPEARANCE,URINE CLOUDY (CLEAR); BILIRUBIN,URINE 3+ (NEGATIVE); BLOOD, URINE 2+ Ery/uL (NEGATIVE); COLOR,URINE AMBER (YELLOW); KETONES,URINE TRACE mg/dL (NEGATIVE); LEUKOCYTE ESTERASE ,URINE TRACE (NEGATIVE); NITRITE, URINE NEGATIVE (NEGATIVE); PROTEIN,URINE 2+ mg/dl (NEGATIVE); UGLUCOSE NEGATIVE (NEGATIVE)
[2023-07-31 17:35] LABS: URINE TOTAL PROTEIN 167.6 mg/dL (0-11.9)
[2023-07-31 19:02] LABS: RBC,URINE 21-50 /HPF (0-2)
[2023-07-31 19:03] LABS: ADD URINE CULTURE YES; BACTERIA,URINE 3+ /HPF (None Seen)
[2023-07-31 19:13] LABS: EOSINOPHIL,URINE None Seen
[2023-07-31] MEDS ORDERED: MIDAZOLAM HCL 5 MG/5ML VIAL IV PRN (20:00)
[2023-07-31 21:34] LABS: CALCIUM, SERUM 7.2 mg/dL (8.5-10.1); POTASSIUM 3.4 mmol/L (3.5-5.1)
[2023-07-31] MEDS: IV LR 1000 ML 1,000 ML IV SCH (21:43)
[2023-07-31 21:49] LABS: ALBUMIN 1.8 g/dL (3.4-5.0); BILIRUBIN,TOTAL 27.4 mg/dL (0.2-1.0); TOTAL PROTEIN, SERUM 5.4 g/dL (6.4-8.2)
[2023-07-31] MEDS: IV LR 500 ML IV ONE (21:52)
[2023-08-01] VITALS (67 sets, daily range): BP systolic 73–216; BP diastolic 35–169; TEMP 97.4–102.2; O2SAT 95–100
[2023-08-01 00:13] LABS: PROTHROMBIN TIME 20.3 SECS (9.2-11.1)
[2023-08-01 00:58] LABS: HEMOGLOBIN 10.4 g/dL (11.5-14.8)
[2023-08-01 04:21] LABS: BASOPHILS # (AUTO) 0.1 K/uL (0.0-0.2); BASOPHILS % (AUTO) 1.1 % (0.0-2.0); EOSINOPHILS % (AUTO) 0.3 % (0.0-6.0); HEMATOCRIT 28 % (33-45); HEMOGLOBIN 10.2 g/dL (11.5-14.8); LYMPHOCYTES # (AUTO) 0.5 K/uL (0.8-4.8); LYMPHOCYTES % (AUTO) 6.2 % (20.0-44.0); MEAN CORPUSCULAR HEMOGLOBIN 33 PG (26.0-33.0); MEAN CORPUSCULAR HGB CONC 36 g/dl (31.0-36.0); MEAN CORPUSCULAR VOLUME 92 fL (82-100); MONOCYTES # (AUTO) 1.7 K/uL (0.1-1.30); MONOCYTES % (AUTO) 19.9 % (2.0-12.0); NEUTROPHILS # (AUTO) 6.2 K/uL (1.8-8.9); NEUTROPHILS % (AUTO) 72.5 % (43.0-81.0); PLATELET COUNT (AUTO) 97 K/uL (150-450); RED BLOOD CELL COUNT(AUTO) 3.06 MIL/uL (4.0-5.2); RED CELL DISTRIBUTION WIDTH 19.3 % (11.5-15.0); WHITE BLOOD COUNT (AUTO) 8.6 K/uL (4.3-11.0)
[2023-08-01 04:33] LABS: INR 2.17 (0.91-1.10); PROTHROMBIN TIME 21.9 SECS (9.2-11.1)
[2023-08-01 04:39] LABS: BAND % (MANUAL) 3 % (0.0-5.0); LYMPHOCYTES % (MANUAL) 8 % (16-48); NEUTROPHILS % (MANUAL) 74 (42-76)
[2023-08-01 04:40] LABS: ANISOCYTOSIS 1+; BASOPHILS % (MANUAL) 0 % (0.0-2.0); EOSINOPHILS % (MANUAL) 0 % (0-4); MONOCYTES % (MANUAL) 15 % (0-11.0); PLATELET ESTIMATE DECREASED
[2023-08-01 04:52] LABS: CREATINE KINASE, TOTAL 53 U/L (26-192)
[2023-08-01 05:06] LABS: ALANINE AMINOTRANSFERASE 31 U/L (12-78); ALBUMIN 1.7 g/dL (3.4-5.0); ALKALINE PHOSPHATASE 190 U/L (46-116); ASPARTATE AMINOTRANSFERASE 186 U/L (15-37); BILIRUBIN,TOTAL 27.2 mg/dL (0.2-1.0); CALCIUM, SERUM 7.6 mg/dL (8.5-10.1); CARBON DIOXIDE 20 mmol/L (21-32); CHLORIDE 98 mmol/L (98-107); GLUCOSE 164 mg/dL (74-106); MAGNESIUM 1.8 mg/dL (1.8-2.4); PHOSPHORUS 2.5 mg/dL (2.5-4.9); POTASSIUM 3.6 mmol/L (3.5-5.1); SODIUM SERUM 133 mmol/L (136-145); TOTAL PROTEIN, SERUM 5.3 g/dL (6.4-8.2); UREA NITROGEN, BLOOD 47 mg/dL (7-18)
[2023-08-01 05:17] LABS: LACTIC ACID 4.3 mmol/L (0.4-2.0); SERUM AMMONIA 161 umol/L (11-32)
[2023-08-01] MEDS: VANCOMYCIN 1 GM in IV D5W 250ml IV SCH (05:24)
[2023-08-01] MEDS: POTASSIUM CL. PREMIX PERIPHER. 50 ML IV SCH (11:28)
[2023-08-01] MEDS: LACTULOSE 10 G/15 ML UDC (PYXIS) NG SCH (13:57)
[2023-08-01] MEDS: RIFAXIMIN 550 MG TABLET NG SCH (14:11)
[2023-08-01] MEDS: Thiamine 500 MG in IV D5W 250 ML IV ONE (14:11)
[2023-08-01] MEDS: LEVOCARNITINE 330 MG TABLET NG SCH (17:52)
[2023-08-01] MEDS: IV LR 1000 ML 1,000 ML BAG IV ONE (17:53)
[2023-08-01 18:32] LABS: CALCIUM, SERUM 7.9 mg/dL (8.5-10.1); CREATININE 1.5 mg/dL (0.6-1.3); POTASSIUM 3.5 mmol/L (3.5-5.1)
[2023-08-01 18:48] LABS: ALBUMIN 1.7 g/dL (3.4-5.0); BILIRUBIN,TOTAL 25.2 mg/dL (0.2-1.0); MAGNESIUM 1.8 mg/dL (1.8-2.4); PHOSPHORUS 2.8 mg/dL (2.5-4.9); TOTAL PROTEIN, SERUM 4.9 g/dL (6.4-8.2)
[2023-08-01] MEDS: LORAZEPAM INJ 2 MG/ML VIAL IV PRN (19:07)
[2023-08-01] MEDS: ACETAMINOPHEN 650 MG/SUPP.RECT RC PRN (19:35)
[2023-08-02] VITALS (81 sets, daily range): BP systolic 70–148; BP diastolic 32–86; TEMP 97.4–99; O2SAT 90–99
[2023-08-02 04:48] LABS: BASOPHILS # (AUTO) 0.2 K/uL (0.0-0.2); BASOPHILS % (AUTO) 2.8 % (0.0-2.0); EOSINOPHILS % (AUTO) 0.3 % (0.0-6.0); HEMATOCRIT 26 % (33-45); HEMOGLOBIN 9.5 g/dL (11.5-14.8); LYMPHOCYTES # (AUTO) 0.6 K/uL (0.8-4.8); LYMPHOCYTES % (AUTO) 7.2 % (20.0-44.0); MEAN CORPUSCULAR HEMOGLOBIN 34 PG (26.0-33.0); MEAN CORPUSCULAR HGB CONC 37 g/dl (31.0-36.0); MEAN CORPUSCULAR VOLUME 93 fL (82-100); MONOCYTES # (AUTO) 0.7 K/uL (0.1-1.30); MONOCYTES % (AUTO) 8.4 % (2.0-12.0); NEUTROPHILS # (AUTO) 6.7 K/uL (1.8-8.9); NEUTROPHILS % (AUTO) 81.3 % (43.0-81.0); PLATELET COUNT (AUTO) 82 K/uL (150-450); RED BLOOD CELL COUNT(AUTO) 2.82 MIL/uL (4.0-5.2); RED CELL DISTRIBUTION WIDTH 20.5 % (11.5-15.0); WHITE BLOOD COUNT (AUTO) 8.2 K/uL (4.3-11.0)
[2023-08-02 05:01] LABS: SERUM AMMONIA 92 umol/L (11-32)
[2023-08-02 05:43] LABS: ALANINE AMINOTRANSFERASE 34 U/L (12-78); ALBUMIN 1.9 g/dL (3.4-5.0); ALKALINE PHOSPHATASE 181 U/L (46-116); ASPARTATE AMINOTRANSFERASE 165 U/L (15-37); BILIRUBIN,TOTAL 27.4 mg/dL (0.2-1.0); CALCIUM, SERUM 8.2 mg/dL (8.5-10.1); CARBON DIOXIDE 21 mmol/L (21-32); CHLORIDE 100 mmol/L (98-107); CREATININE 1.4 mg/dL (0.6-1.3); GLUCOSE 191 mg/dL (74-106); LIPASE 9 U/L (16-77); MAGNESIUM 1.7 mg/dL (1.8-2.4); PHOSPHORUS 2.9 mg/dL (2.5-4.9); POTASSIUM 3.2 mmol/L (3.5-5.1); SODIUM SERUM 135 mmol/L (136-145); TOTAL PROTEIN, SERUM 5.5 g/dL (6.4-8.2); UREA NITROGEN, BLOOD 38 mg/dL (7-18)
[2023-08-02 05:57] LABS: LACTIC ACID 2.5 mmol/L (0.4-2.0)
[2023-08-02 06:31] LABS: ANISOCYTOSIS 1+; BASOPHILS % (MANUAL) 0 % (0.0-2.0); EOSINOPHILS % (MANUAL) 1 % (0-4); LYMPHOCYTES % (MANUAL) 6 % (16-48); MONOCYTES % (MANUAL) 10 % (0-11.0); NEUTROPHILS % (MANUAL) 83 (42-76); OVALOCYTES 1+; PLATELET ESTIMATE DECREASED; TEAR DROP CELLS 1+
[2023-08-02 07:49] LABS: BILIRUBIN,DIRECT 19.9 mg/dL (0.0-0.2)
[2023-08-02 07:51] LABS: LACTIC ACID REFLEX 2.7 mmol/L (0.4-1.9)
[2023-08-02] MEDS: THIAMINE HCL 100 MG TABLET NG SCH (08:03)
[2023-08-02 08:09] LABS: PTH, INTACT 194 pg/mL (15-65)
[2023-08-02] MEDS: POTASSIUM CL. PREMIX PERIPHER. 50 ML IV SCH (08:46)
[2023-08-02] MEDS ORDERED: CT SWABBABLE VALVE TRANS SET 1 EA INFUS.SET MC ONE (12:07)
[2023-08-02] MEDS ORDERED: IOHEXOL-300 100 ML VIAL IV ONE (12:07)
[2023-08-02] MEDS: Magnesium 1GM/D5W 100ML PREMIX 100 ML IV SCH (13:14)
[2023-08-02] MEDS: VANCOMYCIN 750 MG in IV D5W 250 ML IV SCH (17:52)
[2023-08-02 20:29] LABS: ABG BASE EXCESS -4.6 mmol/L; ABG OXYGEN SATURATION 96.5 % (92.0-98.5); ABG PCO2 23.4 mmHg (35.0-45.0); ABG PO2 90.8 mmHg (75.0-100.0); ABG TOTAL HEMOGLOBIN 10.2 G/dL (12.0-16.0); AaDO2 167.5 mmHg; MetHb 0.3 % (0.0-1.5); O2Hb 95.2 % (94.0-97.0); PEEP,BG 0 cm H2O; SITE, ABG A-Line; VT, ABG 450 mL
[2023-08-02] MEDS: IV NS 0.9% 250 ML IV PRN (23:56)
[2023-08-03] VITALS (101 sets, daily range): BP systolic 68–168; BP diastolic 46–95; TEMP 97–98.9; O2SAT 92–99
[2023-08-03 05:06] LABS: BASOPHILS % (AUTO) 0.3 % (0.0-2.0); EOSINOPHILS # (AUTO) 0.1 K/uL (0.0-0.7); EOSINOPHILS % (AUTO) 0.5 % (0.0-6.0); HEMATOCRIT 26 % (33-45); HEMOGLOBIN 9.1 g/dL (11.5-14.8); LYMPHOCYTES # (AUTO) 0.8 K/uL (0.8-4.8); LYMPHOCYTES % (AUTO) 7.3 % (20.0-44.0); MEAN CORPUSCULAR HEMOGLOBIN 33 PG (26.0-33.0); MEAN CORPUSCULAR HGB CONC 35 g/dl (31.0-36.0); MEAN CORPUSCULAR VOLUME 94 fL (82-100); MONOCYTES # (AUTO) 1.6 K/uL (0.1-1.30); MONOCYTES % (AUTO) 14.4 % (2.0-12.0); NEUTROPHILS # (AUTO) 8.6 K/uL (1.8-8.9); NEUTROPHILS % (AUTO) 77.5 % (43.0-81.0); PLATELET COUNT (AUTO) 88 K/uL (150-450); RED BLOOD CELL COUNT(AUTO) 2.77 MIL/uL (4.0-5.2); RED CELL DISTRIBUTION WIDTH 22.7 % (11.5-15.0); WHITE BLOOD COUNT (AUTO) 11.1 K/uL (4.3-11.0)
[2023-08-03 05:18] LABS: INR 2.07 (0.91-1.10); PROTHROMBIN TIME 20.9 SECS (9.2-11.1)
[2023-08-03 05:46] LABS: ALBUMIN 1.6 g/dL (3.4-5.0); BILIRUBIN,TOTAL 25.2 mg/dL (0.2-1.0); CALCIUM, SERUM 8.5 mg/dL (8.5-10.1); CREATININE 1.3 mg/dL (0.6-1.3); MAGNESIUM 2.2 mg/dL (1.8-2.4); PHOSPHORUS 2.9 mg/dL (2.5-4.9); TOTAL PROTEIN, SERUM 5.2 g/dL (6.4-8.2)
[2023-08-03 06:03] LABS: POTASSIUM 2.7 mmol/L (3.5-5.1)
[2023-08-03 06:10] LABS: ANISOCYTOSIS 1+; BASOPHILS % (MANUAL) 0 % (0.0-2.0); EOSINOPHILS % (MANUAL) 2 % (0-4); LYMPHOCYTES % (MANUAL) 8 % (16-48); MONOCYTES % (MANUAL) 12 % (0-11.0); NEUTROPHILS % (MANUAL) 78 (42-76); PLATELET ESTIMATE DECREASED
[2023-08-03] MEDS: POTASSIUM CL. PREMIX PERIPHER. 50 ML IV SCH ×2 (06:43→16:51)
[2023-08-03] MEDS ORDERED: POTASSIUM CL. PREMIX PERIPHER. 50 ML IV SCH (07:00)
[2023-08-03 14:50] LABS: CALCIUM, SERUM 8.3 mg/dL (8.5-10.1); CREATININE 1.3 mg/dL (0.6-1.3)
[2023-08-03] MEDS: OCTREOTIDE 500 MCG/ML VIAL ONE (20:25)
[2023-08-04] VITALS (90 sets, daily range): BP systolic 66–139; BP diastolic 32–93; TEMP 97.5–98.8; O2SAT 92–100
[2023-08-04 04:55] LABS: BASOPHILS % (AUTO) 0.2 % (0.0-2.0); EOSINOPHILS # (AUTO) 0.1 K/uL (0.0-0.7); EOSINOPHILS % (AUTO) 0.6 % (0.0-6.0); HEMATOCRIT 24 % (33-45); HEMOGLOBIN 8.8 g/dL (11.5-14.8); LYMPHOCYTES # (AUTO) 0.6 K/uL (0.8-4.8); LYMPHOCYTES % (AUTO) 5.9 % (20.0-44.0); MEAN CORPUSCULAR HEMOGLOBIN 34 PG (26.0-33.0); MEAN CORPUSCULAR HGB CONC 36 g/dl (31.0-36.0); MEAN CORPUSCULAR VOLUME 94 fL (82-100); MONOCYTES # (AUTO) 1.7 K/uL (0.1-1.30); MONOCYTES % (AUTO) 16.1 % (2.0-12.0); NEUTROPHILS # (AUTO) 7.9 K/uL (1.8-8.9); NEUTROPHILS % (AUTO) 77.2 % (43.0-81.0); PLATELET COUNT (AUTO) 82 K/uL (150-450); RED BLOOD CELL COUNT(AUTO) 2.58 MIL/uL (4.0-5.2); RED CELL DISTRIBUTION WIDTH 24.7 % (11.5-15.0); WHITE BLOOD COUNT (AUTO) 10.3 K/uL (4.3-11.0)
[2023-08-04 05:27] LABS: ALBUMIN 1.5 g/dL (3.4-5.0); BILIRUBIN,TOTAL 26.4 mg/dL (0.2-1.0); CALCIUM, SERUM 8.4 mg/dL (8.5-10.1); CREATININE 1.4 mg/dL (0.6-1.3); MAGNESIUM 1.8 mg/dL (1.8-2.4); PHOSPHORUS 2.4 mg/dL (2.5-4.9); POTASSIUM 3.3 mmol/L (3.5-5.1); TOTAL PROTEIN, SERUM 4.9 g/dL (6.4-8.2)
[2023-08-04] MEDS: VANCOMYCIN 1 GM in IV D5W 250ml IV SCH (05:53)
[2023-08-04 06:16] LABS: ANISOCYTOSIS 1+; BAND % (MANUAL) 2 % (0.0-5.0); BASOPHILS % (MANUAL) 0 % (0.0-2.0); EOSINOPHILS % (MANUAL) 0 % (0-4); LYMPHOCYTES % (MANUAL) 8 % (16-48); MONOCYTES % (MANUAL) 15 % (0-11.0); NEUTROPHILS % (MANUAL) 75 (42-76); PLATELET ESTIMATE DECREASED
[2023-08-04 08:19] LABS: INR 2.08 (0.91-1.10)
[2023-08-04] MEDS: POTASSIUM CL. PREMIX PERIPHER. 50 ML IV SCH (10:47)
[2023-08-04] MEDS ORDERED: [UNRECOGNIZED DRUG - CODE] IJ (13:35)
[2023-08-04] MEDS ORDERED: [UNRECOGNIZED DRUG - CODE] IV (13:35)
[2023-08-04] MEDS ORDERED: [UNRECOGNIZED DRUG - CODE] IV (13:35)
[2023-08-04] MEDS ORDERED: RIFA550T NG (13:35)
[2023-08-04] MEDS ORDERED: ONDA4VIA23 IVP (13:35)
[2023-08-04] MEDS ORDERED: PANT40VI IV (13:35)
[2023-08-04] MEDS ORDERED: LORA2VIA11 IV (13:35)
[2023-08-04] MEDS ORDERED: VANC1PIG IV (13:35)
[2023-08-04] MEDS ORDERED: DEXM400I IV (13:35)
[2023-08-04] MEDS ORDERED: CEFT1VIA15 IV (13:35)
[2023-08-04] MEDS ORDERED: Thiamine HCL NG (13:35)
[2023-08-04] MEDS ORDERED: LACT10SO58 NG (13:35)
[2023-08-04] MEDS: Sodium Phosphate 15 MMOL in IV NS 0.9% 245 ML IV ONE (17:39)
== END 2023-08-04 21:18 | disposition short-term general hospital (02) | DRG 432 ==
LOC: ER 01:05 → ICU 02:21
PROVIDERS: ADMIT Nurse Practitioner Family; ATTEND Nurse Practitioner Acute Care
PROC: 06L38CZ Occlusion of Esophageal Vein with Extraluminal Device, Via Natural or Artificial Opening Endoscopic (ICD-10-PCS; principal; 2023-07-31)
PROC: 30233K1 Transfusion of Nonautologous Frozen Plasma into Peripheral Vein, Percutaneous Approach (ICD-10-PCS; 2023-07-31)
PROC: 30233N1 Transfusion of Nonautologous Red Blood Cells into Peripheral Vein, Percutaneous Approach (ICD-10-PCS; 2023-07-31)
PROC: 30233M1 Transfusion of Nonautologous Plasma Cryoprecipitate into Peripheral Vein, Percutaneous Approach (ICD-10-PCS; 2023-07-31)
PROC: 5A1945Z Respiratory Ventilation, 24-96 Consecutive Hours (ICD-10-PCS; 2023-07-31)
PROC: 0BH17EZ Insertion of Endotracheal Airway into Trachea, Via Natural or Artificial Opening (ICD-10-PCS; 2023-07-31)
PROC: 04HK33Z Insertion of Infusion Device into Right Femoral Artery, Percutaneous Approach (ICD-10-PCS; 2023-07-31)
PROC: 0JH63XZ Insertion of Tunneled Vascular Access Device into Chest Subcutaneous Tissue and Fascia, Percutaneous Approach (ICD-10-PCS; 2023-07-31)
PROC: 05HY33Z Insertion of Infusion Device into Upper Vein, Percutaneous Approach (ICD-10-PCS; 2023-07-31)
DX: K70.31 Alcoholic cirrhosis of liver with ascites (principal); E43 Unspecified severe protein-calorie malnutrition; I85.11 Secondary esophageal varices with bleeding; G93.41 Metabolic encephalopathy; J96.00 Acute respiratory failure, unspecified whether with hypoxia or hypercapnia; K25.4 Chronic or unspecified gastric ulcer with hemorrhage; K76.7 Hepatorenal syndrome; R57.8 Other shock; K76.6 Portal hypertension; D62 Acute posthemorrhagic anemia; E87.1 Hypo-osmolality and hyponatremia; E87.20 Acidosis, unspecified; K86.1 Other chronic pancreatitis; N17.9 Acute kidney failure, unspecified; R65.10 Systemic inflammatory response syndrome (SIRS) of non-infectious origin without acute organ dysfunction; S36.112A Contusion of liver, initial encounter; F10.239 Alcohol dependence with withdrawal, unspecified; K76.82 Hepatic encephalopathy; K31.89 Other diseases of stomach and duodenum; F10.229 Alcohol dependence with intoxication, unspecified; Y90.7 Blood alcohol level of 200-239 mg/100 ml; Z87.898 Personal history of other specified conditions; Z91.030 Bee allergy status; Z91.040 Latex allergy status; Z88.8 Allergy status to other drugs, medicaments and biological substances; Z91.09 Other allergy status, other than to drugs and biological substances; Z79.4 Long term (current) use of insulin; Z79.899 Other long term (current) drug therapy; E83.42 Hypomagnesemia; E86.9 Volume depletion, unspecified; E87.6 Hypokalemia; F17.200 Nicotine dependence, unspecified, uncomplicated; F29 Unspecified psychosis not due to a substance or known physiological condition; F41.9 Anxiety disorder, unspecified; G40.909 Epilepsy, unspecified, not intractable, without status epilepticus; K21.9 Gastro-esophageal reflux disease without esophagitis; Z87.19 Personal history of other diseases of the digestive system; I10 Essential (primary) hypertension; K72.10 Chronic hepatic failure without coma; K80.20 Calculus of gallbladder without cholecystitis without obstruction; Z86.74 Personal history of sudden cardiac arrest; E11.9 Type 2 diabetes mellitus without complications; K59.00 Constipation, unspecified; D69.6 Thrombocytopenia, unspecified; H35.81 Retinal edema
CPT/HCPCS: 31720; 36415; 36600; 70450-TC; 71045-TC; 74178; 76700-TC; 80048-TC; 80053-TC; 80076-TC; 80202-TC; 81001; 82140-TC; 82248-TC; 82550-TC; 82570-TC; 82803-TC; 82962-TC; 83605-TC; 83690-TC; 83735-TC; 83970; 84100-TC; 84155; 84165; 84300-TC; 84443-TC; 84702-TC; 84703-TC; 85025-TC; 85027-TC; 85385-TC; 85610-TC; 85730-TC; 86850-TC; 87081-TC; 94002-TC; 94003-TC; 94761-TC; 94762-TC; 94799-TC; A4217; A4223; A6403; A9563; C9113; G0378; G0480; J0330; J0696; J1815; J2060; J2354; J2405; J3370; J3371; J3411; J3430; J3475; J3480; J3490; J7030; J7040; J7050; J7060; J7120; P9012; P9016; P9017; Q9967